=== PATIENT | male | born 1960 | race African-American/Black ===

== ENCOUNTER 2017-05-23 15:57 | Inpatient (IN) | payer OTHER ==
--- NOTE | 2017-05-23 16:26 | PDOC ---
History of Present Illness - General Chief Complaint: Shortness of Breath Stated Complaint: SOB Time Seen by Provider: 05/23/17 16:25 - History of Present Illness Initial Comments: 05/23/17 16:29 Pt to ER via EMS from home c/o sob/dizzy when standing x 3 hours. Pt denies pain , cough/congestion. Pt reports he was at [facility] ER 2 days ago for elevated blood sugar (467) but walked out when he didn't get any food. Per EMS, bgm=88. 05/23/17 16:48 56M with pmh of diabetes presents several days of intermittent lightheaded,mild ataxia,palpitations, and exertional dyspnea. He was seen at [facility] on Wednesday for lightheadedness and his glucose was 490 and he recieved 2 l of saline , cxr and left ama He has not been checking his glucose the last few months PMH IDDM lantus 60-70 at bedtime, metformin 1000mg, glipizide 10 mg BID,HTN norvasc 10mg and lipitor 10mg PSH none Allergies none Past History - Past Medical History Allergies/Adverse Reactions: Allergies Allergy/AdvReac Type Severity Reaction Status Date / Time No Known Allergies Allergy Verified 05/23/17 16:10 Home Medications: Ambulatory Orders Amlodipine Besylate [Norvasc -] 10 mg PO DAILY 05/23/17 Atorvastatin Ca [Lipitor] 10 mg PO DAILY 05/23/17 Glipizide [Glipizide ER] 10 mg PO BID 05/23/17 Insulin Glargine,Hum.rec.anlog [Lantus] 0 unit SQ HS 05/23/17 Metformin HCl [Metformin HCl ER] 1,000 mg PO BID 05/23/17 Review of Systems - Review of Systems Able to Perform ROS?: Yes Is the patient limited Irish proficient: No Constitutional: Yes: See HPI HEENTM: No: Symptoms Reported Respiratory: Yes: See HPI Cardiac (ROS): No: Symptoms Reported ABD/GI: No: Symptoms Reported : No: Symptoms Reported Musculoskeletal: No: Symptoms Reported Integumentary: No: Symptoms Reported All Other Systems: Reviewed and Negative *Physical Exam - Physical Exam General Appearance: Yes: Nourished, Appropriately Dressed. No: Apparent Distress HEENT: positive: EOMI, KENNY, Normal ENT Inspection Respiratory/Chest: positive: Lungs Clear, Normal Breath Sounds. negative: Chest Tender, Respiratory Distress Cardiovascular: positive: Regular Rhythm, S1, S2, Tachycardia Gastrointestinal/Abdominal: positive: Normal Bowel Sounds, Flat, Soft. negative : Tender Integumentary: positive: Normal Color, Dry, Warm Neurologic: positive: Fully Oriented, Alert, Normal Mood/Affect, Normal Response , Motor Strength / ED Treatment Course - LABORATORY CBC & Chemistry Diagram: 05/23/17 16:40 05/23/17 16:40 Medical Decision Making - Medical Decision Making 05/23/17 18:56 56 yo male p/w lightheadedness,dizziness, exertional dyspnea,palpitations cbc anemia ,pt has no history of anemia chemistry glucose is normal at 95,troponin is negative ekg sinus tachycardia @ 120 Positive stool guaiac. *DC/Admit/Observation/Transfer Diagnosis at time of Disposition: Lower GI bleed, Anemia - Referrals - Patient Instructions - Post Discharge Activity
--- NOTE | 2017-05-23 16:37 | PDOC ---
Attending Attestation - Resident Resident Name: Phan Shore - ED Attending Attestation I have performed the following: I have examined & evaluated the patient, The case was reviewed & discussed with the resident, I agree w/resident's findings & plan, Exceptions are as noted - HPI HPI: 05/23/17 16:33 56 y male p/w several days of intermittent lightheaded,mild ataxia,palpitations , and exertional dyspnea. He was seen at [facility] on Wednesday for lightheadedness and his glucose was 490 and he recieved 2 l of saline , cxr and discharged home. He has not been checking his glucose the last few months PMH IDDM lantus 60-70 at bedtime, metformin 1000mg, glipizide 10 mg BID,HTN norvasc 10mg and lipitor 10mg PSH none Allergies none - Physicial Exam PE: 05/23/17 16:38 head ncat eyes yogi neck supple lungs cta c/l cvs tachycardia abd soft,nontender rectal exam brown stool, normal tone ext no edema,no erythema neuro axox3,ambulatory skn warm and dry psych appropriate 05/23/17 18:22 - Medical Decision Making 05/23/17 18:30 56 yo male p/w lightheadedness,dizziness, exertional dyspnea,palpitations cbc anemia ,pt has no history of anemia chemistry glucose is normal at 95,troponin is negative ekg sinus tachycardia @ 120 GUIAC POSITIVE imp GI bleed,admit to med tele on 4W , discussed with Dr Juarez 05/23/17 19:21
[2017-05-23] MEDS ORDERED: SODIUM CHLORIDE 1,000 ML IV STA (16:40)
[2017-05-23 17:11] LABS: BASO % 0.3 % (0-2.0); EOS % 0.1 % (0-4.5); HEMATOCRIT 29.1 % (35.4-49); HEMOGLOBIN 9.8 GM/dL (11.7-16.9); MCH 30.5 pg (25.7-33.7); MCHC 33.6 g/dl (32.0-35.9); MEAN CELL VOLUME 90.8 fl (80-96); MEAN PLT VOLUME 9.1 fl (7.5-11.1); MONO % 7.2 % (3.8-10.2); NEUT % 74.4 % (42.8-82.8); PLATELET COUNT 187 K/MM3 (134-434); RBC 3.21 M/mm3 (4.00-5.60); RDW 14.6 % (11.9-15.9); WHITE BLOOD COUNT 9.6 K/mm3 (4.0-10.0)
[2017-05-23 17:23] LABS: INR 1.19 (0.82-1.09); PROTHROMBIN TIME (PATIENT) 13.5 SEC (9.98-11.88)
[2017-05-23 17:46] LABS: ALBUMIN 3.3 g/dl (3.4-5.0); ANION GAP 13 (8-16); BILIRUBIN,TOTAL 0.4 mg/dL (0.2-1.0); BLOOD UREA NITROGEN 26 mg/dL (7-18); CALCIUM 8.3 mg/dL (8.5-10.1); CHLORIDE 102 mmol/L (98-107); CO2 24 mmol/L (21-32); CREATININE 0.8 mg/dL (0.7-1.3); GLUCOSE,RANDOM 95 mg/dL (74-106); SGOT/AST 14 U/L (15-37); SGPT/ALT 20 U/L (12-78); SODIUM 139 mmol/L (136-145); TOT PROT 6.1 g/dl (6.4-8.2)
[2017-05-23 17:49] LABS: ALK PHOS 60 U/L (45-117)
[2017-05-23] MEDS ORDERED: PANTOPRAZOLE SODIUM 40 MG VIAL ONE (18:30)
[2017-05-23] MEDS ORDERED: PANTOPRAZOLE SODIUM 40 MG VIAL IVPUSH ONE (18:30)
--- NOTE | 2017-05-23 19:27 | PN ---
Teaching Attending Note Name of Resident: Ngozi Mercado ATTENDING PHYSICIAN STATEMENT I saw and evaluated the patient. I reviewed the resident's note and discussed the case with the resident. I agree with the resident's findings and plan as documented. SUBJECTIVE: 56 M who was BIBA for shortness and dizziness. States he was seen at [facility] on Wednesday for high blood sugar. States this started one day ago. States shortness of breath is only apparent on exertion. States he has never had a colonoscopy/EGD. Does note sometimes stool is hard to pass. Does not note any ark or bloody stool. Denies hemoptysis and hemetemsis. Pmhx: DM, HTN OBJECTIVE: Physical: VS: Vital Signs Period Temp Pulse Resp BP Sys/Rivera Pulse Ox Last 24 Hr 98.6 F 108-130 16-18 72-120/62-81 99-100 GEN: NAD, Resting in bed, AA0X3 HEENT: NCAT, PERRL, Throat without erythema or exudates CARD: S Tach S1, S2 RESP: CTAB ABD: BSx4, NTD to palpation EXT: - C/C/E CBCD WBC 9.6 K/mm3 (4.0-10.0) 05/23/17 16:40 RBC 3.21 M/mm3 (4.00-5.60) L 05/23/17 16:40 Hgb 9.8 GM/dL (11.7-16.9) L 05/23/17 16:40 Hct 29.1 % (35.4-49) L 05/23/17 16:40 MCV 90.8 fl (80-96) 05/23/17 16:40 MCHC 33.6 g/dl (32.0-35.9) 05/23/17 16:40 RDW 14.6 % (11.9-15.9) 05/23/17 16:40 Plt Count 187 K/MM3 (134-434) 05/23/17 16:40 MPV 9.1 fl (7.5-11.1) 05/23/17 16:40 CMP Sodium 139 mmol/L (136-145) 05/23/17 16:40 Potassium 4.0 mmol/L (3.5-5.1) 05/23/17 16:40 Chloride 102 mmol/L (98-107) 05/23/17 16:40 Carbon Dioxide 24 mmol/L (21-32) 05/23/17 16:40 Anion Gap 13 (8-16) 05/23/17 16:40 BUN 26 mg/dL (7-18) H 05/23/17 16:40 Creatinine 0.8 mg/dL (0.7-1.3) 05/23/17 16:40 Creat Clearance w eGFR > 60 (>60) 05/23/17 16:40 Random Glucose 95 mg/dL (74-106) 05/23/17 16:40 Calcium 8.3 mg/dL (8.5-10.1) L 05/23/17 16:40 Total Bilirubin 0.4 mg/dL (0.2-1.0) 05/23/17 16:40 AST 14 U/L (15-37) L 05/23/17 16:40 ALT 20 U/L (12-78) 05/23/17 16:40 Alkaline Phosphatase 60 U/L (45-117) 05/23/17 16:40 Total Protein 6.1 g/dl (6.4-8.2) L 05/23/17 16:40 Albumin 3.3 g/dl (3.4-5.0) L 05/23/17 16:40 CARDIAC ENZYMES Creatine Kinase 296 IU/L (39-308) 05/23/17 16:40 Troponin I < 0.02 ng/ml (0.00-0.05) 05/23/17 16:40 Home Medications Medication Instructions Recorded Amlodipine Besylate [Norvasc -] 10 mg PO DAILY 05/23/17 Atorvastatin Ca [Lipitor] 10 mg PO DAILY 05/23/17 Glipizide [Glipizide ER] 10 mg PO BID 05/23/17 Insulin Glargine,Hum.rec.anlog 0 unit SQ HS 05/23/17 [Lantus] Metformin HCl [Metformin HCl ER] 1,000 mg PO BID 05/23/17 CT HEAD- Negative EKG- S Tach CXR- Negative Stool Occult-Positive ASSESSMENT AND PLAN: 56 M with Pmhx of DM who presents with shortness of breath, being admitted for GI Bleed 1.) UGIB? - Most likely cause of exertional dyspnea - Protoxix gtt - 2 Large Bore Ivs - NPO - GI Consult - Type & Screen - Tranfuse HgB<7 2.) Dyspnea On Exertion - Possibly due to Anemia - Check Echo - Tren Trop/EKG 3.) DM - FS - RAISS - Hold PO meds 4.) HTN - Hold Norvasc 5.) Dvt PPx - SCDs Place in Med-Tele
--- NOTE | 2017-05-23 19:40 | PDOC ---
*Physical Exam - Vital Signs Last Vital Signs Temp Pulse Resp BP Pulse Ox 98.6 F 108 H 16 114/81 100 05/23/17 16:13 05/23/17 17:18 05/23/17 17:18 05/23/17 17:18 05/23/17 17:18 ED Treatment Course - LABORATORY CBC & Chemistry Diagram: 05/23/17 16:40 05/23/17 16:40 - ADDITIONAL ORDERS Additional order review: Laboratory Results 05/23/17 05/23/17 05/23/17 18:13 16:40 16:40 PT with INR INR Sodium 139 Potassium 4.0 Chloride 102 Carbon Dioxide 24 Anion Gap 13 BUN 26 H Creatinine 0.8 Creat Clearance w eGFR > 60 Random Glucose 95 Calcium 8.3 L Total Bilirubin 0.4 AST 14 L ALT 20 Alkaline Phosphatase 60 Creatine Kinase 296 Creatine Kinase Index 1.4 CK-MB (CK-2) 4.295 H Troponin I < 0.02 Total Protein 6.1 L Albumin 3.3 L Stool Occult Blood Positive Blood Type O POSITIVE Antibody Screen Negative Crossmatch See Detail 05/23/17 16:40 PT with INR 13.50 H INR 1.19 H Sodium Potassium Chloride Carbon Dioxide Anion Gap BUN Creatinine Creat Clearance w eGFR Random Glucose Calcium Total Bilirubin AST ALT Alkaline Phosphatase Creatine Kinase Creatine Kinase Index CK-MB (CK-2) Troponin I Total Protein Albumin Stool Occult Blood Blood Type Antibody Screen Crossmatch 05/23/17 16:40 RBC 3.21 L MCV 90.8 MCHC 33.6 RDW 14.6 MPV 9.1 Neutrophils % 74.4 Lymphocytes % 18.0 Monocytes % 7.2 Eosinophils % 0.1 Basophils % 0.3 - RADIOLOGY Radiology Studies Ordered: Category Date Time Status HEAD CT WITHOUT CONTRAST [CT] Stat CT Scan 05/23/17 16:39 Taken CHEST X-RAY PORTABLE* [RAD] Stat Radiology 05/23/17 16:39 Taken - Medications Given in the ED: ED Medications Discontinued Medications Generic Name Dose Route Start Last Admin Trade Name Freq PRN Reason Stop Dose Admin Sodium Chloride 1,000 mls @ 1,000 mls/hr 05/23/17 16:40 05/23/17 17:00 Normal Saline - IV 05/23/17 17:39 1,000 mls/hr ASDIR STA Administration Pantoprazole Sodium 40 mg 05/23/17 18:30 05/23/17 18:33 Protonix Iv IVPUSH 05/23/17 18:31 40 mg ONCE ONE Administration *DC/Admit/Observation/Transfer Diagnosis at time of Disposition: Lower GI bleed, Exertional dyspnea, Dizziness Anemia Qualifiers: Anemia type: other cause Other causes of anemia: other cause, not classified Qualified Code(s): D64.89 - Other specified anemias - Discharge Dispostion Admit: Yes - Referrals - Patient Instructions - Post Discharge Activity
--- NOTE | 2017-05-23 20:50 | HP ---
CHIEF COMPLAINT: SOB, dizziness PCP: HISTORY OF PRESENT ILLNESS: The patient is a 56 yo m w/ PMH DM, HTN who comes into the ED c/o 1 day hx of dyspnea on exertion, dizziness and generalized weakness for the past 1 day. Patient was recently seen at [facility] ER 2 days ago for high blood sugar (497). He received treatment and imaging, then left AMA. Patient unaware of the results of his ER visit tests. Patient currently asymptomatic while lying in bed, but experiences recurrence of symptoms upon getting out of bed and walking. Patient endorses constipation as well as recent change in stool caliber (over the last 2 months) and occational "scratching feeling" when passing hard stool. Patient denies CP, abdominal pain, fevers, chills, LOC, falls, palpitations, hemoptysis, hematemesis, melena, BRBPR. ER course was notable for: (1) Hb 9.8 (2) fecal occult blood test positive (3) troponin negative x1 Recent Travel: none PAST MEDICAL HISTORY: Diabetes HTN PAST SURGICAL HISTORY: none Social History: Smoking: smoked 1ppd for 15 years; quit in 2005 Alcohol: social drinker Drugs: denies Family History: Mother: throat cancer Father: multiple CA Allergies No Known Allergies Allergy (Verified 05/23/17 16:10) HOME MEDICATIONS: Home Medications Medication Instructions Recorded Amlodipine Besylate [Norvasc -] 10 mg PO DAILY 05/23/17 Atorvastatin Ca [Lipitor] 10 mg PO DAILY 05/23/17 Glipizide [Glipizide ER] 10 mg PO BID 05/23/17 Insulin Glargine,Hum.rec.anlog 0 unit SQ HS 05/23/17 [Lantus] Metformin HCl [Metformin HCl ER] 1,000 mg PO BID 05/23/17 REVIEW OF SYSTEMS CONSTITUTIONAL: Absent: fever, chills, diaphoresis, malaise, loss of appetite, weight change HEENT: Absent: rhinorrhea, nasal congestion, throat pain, throat swelling, difficulty swallowing, mouth swelling, ear pain, eye pain, visual changes CARDIOVASCULAR: Absent: chest pain, syncope, palpitations, irregular heart rate, lightheadedness , peripheral edema RESPIRATORY: Absent: cough, orthopnea, wheezing, stridor, hemoptysis GASTROINTESTINAL: Absent: abdominal pain, abdominal distension, nausea, vomiting, diarrhea, constipation, melena, hematochezia GENITOURINARY: Absent: dysuria, frequency, urgency, hesitancy, hematuria, flank pain, genital pain MUSCULOSKELETAL: Absent: myalgia, arthralgia, joint swelling, back pain, neck pain SKIN: Absent: rash, itching, pallor HEMATOLOGIC/IMMUNOLOGIC: Absent: easy bleeding, easy bruising, lymphadenopathy, frequent infections ENDOCRINE: Absent: unexplained weight gain, unexplained weight loss, heat intolerance, cold intolerance NEUROLOGIC: Absent: headache, focal weakness or paresthesias, dizziness, unsteady gait, seizure, mental status changes, bladder or bowel incontinence PSYCHIATRIC: Absent: anxiety, depression, suicidal or homicidal ideation, hallucinations. PHYSICAL EXAMINATION Vital Signs - 24 hr 05/23/17 05/23/17 05/23/17 16:13 16:39 17:18 Temperature 98.6 F Pulse Rate 120 H Pulse Rate [ 108 H Apical] Pulse Rate [ 123 H Left side Sitting] Pulse Rate [ 130 H Left side Standing] Respiratory 18 16 Rate Blood Pressure 118/75 Blood Pressure 120/72 [Left side Sitting] Blood Pressure 72/62 [Left side Standing] Blood Pressure 114/81 [Right Arm] O2 Sat by Pulse 99 100 Oximetry (%) GENERAL: Awake, alert, and fully oriented, in no acute distress. HEAD: Normal with no signs of trauma. EYES: Pupils equal, round and reactive to light, extraocular movements intact, sclera anicteric, conjunctival pallor noted. No lid lag. LUNGS: Breath sounds equal, clear to auscultation bilaterally. No wheezes, and no crackles. No accessory muscle use. HEART: Regular rhythm, Tachycardic, normal S1 and S2 without murmur, rub or gallop. ABDOMEN: Soft, nontender, not distended, normoactive bowel sounds, no guarding, no rebound, no masses. No hepatomegaly or splenomegaly. Patient deferred rectal exam. LOWER EXTREMITIES: 2+ pulses, warm, well-perfused. No calf tenderness. No peripheral edema. NEUROLOGICAL: Cranial nerves II-X intact. Normal speech. SKIN: Warm, dry, normal turgor, no rashes or lesions noted, normal capillary refill. Laboratory Results - last 24 hr 05/23/17 05/23/17 05/23/17 16:40 16:40 16:40 WBC 9.6 RBC 3.21 L Hgb 9.8 L Hct 29.1 L MCV 90.8 MCH 30.5 MCHC 33.6 RDW 14.6 Plt Count 187 MPV 9.1 Neutrophils % 74.4 Lymphocytes % 18.0 Monocytes % 7.2 Eosinophils % 0.1 Basophils % 0.3 PT with INR 13.50 H INR 1.19 H Sodium 139 Potassium 4.0 Chloride 102 Carbon Dioxide 24 Anion Gap 13 BUN 26 H Creatinine 0.8 Creat Clearance w eGFR > 60 Random Glucose 95 Calcium 8.3 L Total Bilirubin 0.4 AST 14 L ALT 20 Alkaline Phosphatase 60 Creatine Kinase 296 Creatine Kinase Index 1.4 CK-MB (CK-2) 4.295 H Troponin I < 0.02 Total Protein 6.1 L Albumin 3.3 L Stool Occult Blood Blood Type Antibody Screen Crossmatch 05/23/17 05/23/17 16:40 18:13 WBC RBC Hgb Hct MCV MCH MCHC RDW Plt Count MPV Neutrophils % Lymphocytes % Monocytes % Eosinophils % Basophils % PT with INR INR Sodium Potassium Chloride Carbon Dioxide Anion Gap BUN Creatinine Creat Clearance w eGFR Random Glucose Calcium Total Bilirubin AST ALT Alkaline Phosphatase Creatine Kinase Creatine Kinase Index CK-MB (CK-2) Troponin I Total Protein Albumin Stool Occult Blood Positive Blood Type O POSITIVE Antibody Screen Negative Crossmatch See Detail ASSESSMENT/PLAN: The patient is a 56 yo m w/ PMH DM, HTN being admitted for SOB, Anemia and possible GIB. #SOB and generalized weakness 2/2 Cardiac vs r/o UGIB -FOBT positive -GI consulted -Patient appears stable and not actively bleeding at this time -20g IV x2 inserted -CBC Q8H; transfuse if Hb falls below 7 -RPT CBC shows drop of Hb 9.8-> 7.9. -Likely dilutional vs continued bleeding -Will transfuse 1U PRBC & recheck CBC in AM -Iron studies -Vit B12 -Folate -NPO -Protonix 40mg Q12H -Echo, EKG in AM -Troponin negative x2 -Patient deferred rectal exam #Diabetes -Recent high BGM; 95 in ED, 88 as per EMS -BGM Q4H while NPO -D5 1/2 NS while NPO -ISS Q4H -Holding oral hypoglycemics #HTN -Hold home norvasc -resume home lipitor #FEN -D5 1/2 NS @ 75- Held -lytes wnl -NPO #Prophylaxis -SCDs until bleed ruled out #Dispo -Admit to tele Visit type - Emergency Visit Emergency Visit: Yes ED Registration Date: 05/23/17 Care time: The patient presented to the Emergency Department on the above date and was hospitalized for further evaluation of their emergent condition. - New Patient This patient is new to me today: Yes Date on this admission: 05/24/17 - Critical Care Critical Care patient: No Hospitalist Screening - Colonoscopy Questionnaire Colonoscopy Questionnaire: Colonoscopy Questionnaire - Patient: 50 - 75 years old and never had a screening colonoscopy: Yes History of colon or rectal polyps, or CA: No History of IBD, Crohn's disease or UC: No History of abdominal radiation therapy as a child: No - Relative: 1 with colon or rectal CA, or polyps at age 60 or younger: No Colon or rectal CA diagnosed at age 45 or younger: No Multiple relatives with colon or rectal CA: No - Outcome: Screening Result: Positive Screen
[2017-05-23] MEDS ORDERED: DEXTROSE 5%-0.45% SALINE 1,000 ML IV SCH (21:45)
[2017-05-23] MEDS: INSULIN SLIDING SCALE (NOVOLOG) 1 VIAL SQ SCH (22:18)
[2017-05-23] MEDS: PANTOPRAZOLE SODIUM 40 MG VIAL IVPUSH SCH (22:19)
[2017-05-23] MEDS: ACETAMINOPHEN 325 MG TABLET (FP) PO PRN (22:19)
[2017-05-23] MEDS: ATORVASTATIN CA 10 MG TABLET (FP) PO SCH (23:00)
[2017-05-23 23:23] VITALS: BMI 25.0
[2017-05-24 01:04] LABS: BASO % 0.2 % (0-2.0); EOS % 0.4 % (0-4.5); HEMATOCRIT 23.6 % (35.4-49); HEMOGLOBIN 7.9 GM/dL (11.7-16.9); LYMPH % 21.9 % (8-40); MCH 30.3 pg (25.7-33.7); MCHC 33.2 g/dl (32.0-35.9); MEAN CELL VOLUME 91.2 fl (80-96); MEAN PLT VOLUME 9.4 fl (7.5-11.1); NEUT % 69.5 % (42.8-82.8); PLATELET COUNT 159 K/MM3 (134-434); RBC 2.59 M/mm3 (4.00-5.60); RDW 14.5 % (11.9-15.9)
[2017-05-24 01:07] LABS: URINE APPEARANCE CLEAR; URINE BILIRUBIN NEGATIVE (NEGATIVE); URINE BLOOD NEGATIVE (NEGATIVE); URINE COLOR LTYELLOW; URINE GLUCOSE (UA) NEGATIVE (NEGATIVE); URINE KETONE TRACE (NEGATIVE); URINE LEUK ESTERASE NEGATIVE (NEGATIVE); URINE NITRITE NEGATIVE (NEGATIVE); URINE PROTEIN NEGATIVE (NEGATIVE); URINE UROBILINOGEN 4.0 E.U/dl mg/dL (0.2-1.0)
[2017-05-24] MEDS: INSULIN SLIDING SCALE (NOVOLOG) 1 VIAL SQ SCH ×5 (02:37→22:41)
[2017-05-24] MEDS: ACETAMINOPHEN 325 MG TABLET (FP) PO PRN ×3 (04:00→19:04)
--- NOTE | 2017-05-24 08:19 | MSN ---
Progress Note (short form) - Note Progress Note: Subjective: Patient was seen and examined this morning. States that he is feeling better, does not feel light headed when he gets up anymore. Patient seen by GI, told will have colonoscopy today. Patient complains of left sided tooth ache. On tele , patient is tachycardic >120. 56yo M with hx of DM and HTN presented to the ED due to dizziness, fatigue/ lightheadedness, SOB which started yesterday. Patient states that he went to [facility] on Wed due to subjective fever and chills and had glucose of 400+, patient left AMA due to "poor service." On Wednesday, patient felt tired, lightheaded, heavy leg, SOB and eye whiteout whenever he tries to get up and resolved when he sits down, without loss of consciousness. Patient also noted that gradually there has been a change in caliber of stool, getting thinner and longer. Patient has never had a colonoscopy previously. Patient also complains of left sided swollen gum since yesterday. Patient's FM significant for throat cancer in mom, DM and MIx3- dad. Social hx: quit smoking in 2005. smoked for 10 years 1/2ppd-2ppd. Objective: Last Vital Signs Temp Pulse Resp BP Pulse Ox 98.6 F 87 18 122/73 100 05/24/17 06:27 05/24/17 06:27 05/24/17 06:27 05/24/17 06:27 05/23/17 22:30 Intake & Output 05/21/17 05/22/17 05/23/17 05/24/17 23:59 23:59 23:59 23:59 Intake Total 900 Output Total 600 Balance 300 Weight 184 lb 4 oz General: Patient appears comfortable and in no acute distress. Finished 1 PRBC infusion. HEENT: PERRL, swollen tender gum area of left canine. mucous membranes moist. no lymphadenopathy noted. Heart: RRR. no rubs, murmurs or gallops appreciated. Lungs: CTA b/l. no wheezing, crackles or rhonci appreciated. Abdomen: non-distended, normoactive bowel sounds x4, nontender to palpation throughout. Extremities: 2+ pulses b/l on UE and LE. No edema noted. CBC, BMP 05/24/17 00:30 05/23/17 16:40 Abnormal Lab Results 05/23/17 05/23/17 05/23/17 16:40 16:40 16:40 RBC 3.21 L Hgb 9.8 L Hct 29.1 L PT with INR 13.50 H INR 1.19 H BUN 26 H Calcium 8.3 L AST 14 L CK-MB (CK-2) 4.295 H Total Protein 6.1 L Albumin 3.3 L Urine Ketones Crossmatch 05/23/17 05/24/17 05/24/17 16:40 00:30 00:50 RBC 2.59 L Hgb 7.9 L D Hct 23.6 L D PT with INR INR BUN Calcium AST CK-MB (CK-2) Total Protein Albumin Urine Ketones Trace H Crossmatch See Detail Home Medications Medication Instructions Recorded Amlodipine Besylate [Norvasc -] 10 mg PO DAILY 05/23/17 Atorvastatin Ca [Lipitor] 10 mg PO DAILY 05/23/17 Glipizide [Glipizide ER] 10 mg PO BID 05/23/17 Insulin Glargine,Hum.rec.anlog 0 unit SQ HS 05/23/17 [Lantus] Metformin HCl [Metformin HCl ER] 1,000 mg PO BID 05/23/17 Current Medications Acetaminophen (Tylenol -) 650 mg PO Q6H PRN PRN Reason: PAIN LEVEL 1-5 Last Admin: 05/24/17 04:00 Dose: 650 mg Atorvastatin Calcium (Lipitor -) 10 mg PO HS [facility] Last Admin: 05/23/17 23:00 Dose: 10 mg Insulin Aspart (Novolog Vial Sliding Scale -) 1 vial SQ Q4HPO [facility] PRN Reason: Protocol Last Admin: 05/24/17 06:55 Dose: Not Given Pantoprazole Sodium (Protonix Iv) 40 mg IVPUSH BID [facility] Last Admin: 05/23/17 22:19 Dose: 40 mg Assessment/ Plan: 56yo M with hx of DM and HTN presented to the ED due to dizziness, fatigue/ lightheadedness, SOB was found to be anemic and was transfused with 1 PRBC. # anemia secondary to upper or lower GI bleed - GI on board, EGD & colonoscopy Wednesday - protonix 40mg BID - tylenol 650 q6h prn pain - transfused 1 PRBC, HgB improved to 9.7 - B12, folate, ferritin wnl # DM - ISS, BGM # HTN - currently controlled. - home med lisinopril 20mg qd - on hold # FEN - F: bowel prep - E: wnl - N: clear liquid
[2017-05-24 09:25] LABS: BASO % 0.3 % (0-2.0); EOS % 0.3 % (0-4.5); HEMATOCRIT 30.9 % (35.4-49); HEMOGLOBIN 10.3 GM/dL (11.7-16.9); LYMPH % 13.8 % (8-40); MCH 30.2 pg (25.7-33.7); MCHC 33.3 g/dl (32.0-35.9); MEAN CELL VOLUME 90.7 fl (80-96); MEAN PLT VOLUME 8.5 fl (7.5-11.1); MONO % 8.1 % (3.8-10.2); NEUT % 77.5 % (42.8-82.8); PLATELET COUNT 161 K/MM3 (134-434); RDW 14.2 % (11.9-15.9); WHITE BLOOD COUNT 9.7 K/mm3 (4.0-10.0)
[2017-05-24 09:51] LABS: ALBUMIN 3.3 g/dl (3.4-5.0); ALK PHOS 70 U/L (45-117); ANION GAP 7 (8-16); BILIRUBIN,TOTAL 0.8 mg/dL (0.2-1.0); BLOOD UREA NITROGEN 15 mg/dL (7-18); CALCIUM 7.8 mg/dL (8.5-10.1); CHLORIDE 107 mmol/L (98-107); CO2 25 mmol/L (21-32); CREATININE 0.8 mg/dL (0.7-1.3); GLUCOSE,RANDOM 93 mg/dL (74-106); MAGNESIUM 1.9 mg/dL (1.8-2.4); POTASSIUM 3.9 mmol/L (3.5-5.1); SGOT/AST 12 U/L (15-37); SGPT/ALT 15 U/L (12-78); SODIUM 139 mmol/L (136-145); TOT PROT 5.8 g/dl (6.4-8.2)
[2017-05-24] MEDS: PANTOPRAZOLE SODIUM 40 MG VIAL IVPUSH SCH ×2 (09:54→22:41)
[2017-05-24] MEDS ORDERED: amLODIPine BESYLATE 10 MG TABLET (FP) PO SCH (10:00)
--- NOTE | 2017-05-24 11:38 | CON.GI ---
Consult Consult Specialty:: GI Reason for Consultation:: Anemia, heme positive stools, change in stool caliper - History of Present Illness History of Present Illness: chart reviewed. Martin noted. PER ED: The patient is a 56 yo m w/ PMH DM, HTN who comes into the ED c/o 1 day hx of dyspnea on exertion, dizziness and generalized weakness for the past 1 day. Patient was recently seen at [facility] ER 2 days ago for high blood sugar (497). He received treatment and imaging, then left AMA. Patient unaware of the results of his ER visit tests. Patient currently asymptomatic while lying in bed, but experiences recurrence of symptoms upon getting out of bed and walking. Patient endorses constipation as well as recent change in stool caliber (over the last 2 months) and occational "scratching feeling" when passing hard stool. At the time of this encounter, the patient appears comfortable. Reports thinner stools. Denies fever, chills, nausea, vomiting, hematemesis, dysphagia, odynophagia, chronic acid reflux, jaundice, abdominal pain, altered bowels, Denies melena, hematochezia, weight loss. No gastrointestinal, hepatic, or pancreaticobiliary family history reported. Never had screening colonoscopy. Never had EGD - History Source History Provided By: Patient, Medical Record - Alcohol/Substance Use Hx Alcohol Use: Yes (casually.) - Smoking History Smoking history: Former smoker Have you smoked in the past 12 months: No If you are a former smoker, when did you quit?: 2005 Home Medications - Allergies Allergies/Adverse Reactions: Allergies Allergy/AdvReac Type Severity Reaction Status Date / Time No Known Allergies Allergy Verified 05/23/17 16:10 - Home Medications Home Medications: Ambulatory Orders Amlodipine Besylate [Norvasc -] 10 mg PO DAILY 05/23/17 Atorvastatin Ca [Lipitor] 10 mg PO DAILY 05/23/17 Glipizide [Glipizide ER] 10 mg PO BID 05/23/17 Insulin Glargine,Hum.rec.anlog [Lantus] 0 unit SQ HS 05/23/17 Metformin HCl [Metformin HCl ER] 1,000 mg PO BID 05/23/17 Family Disease History - Family Disease History Family History: Unremarkable Review of Systems Findings/Remarks: as per HPI H&P Physical Exam-GI Vital Signs: Vital Signs Temperature 98.6 F 05/24/17 06:27 Pulse Rate 103 H 05/24/17 08:26 Respiratory Rate 18 05/24/17 06:27 Blood Pressure 135/81 05/24/17 08:26 O2 Sat by Pulse Oximetry (%) 100 05/23/17 22:30 Constitutional: Yes: Well Nourished, No Distress, Calm Eyes: Yes: Conjunctiva Clear HENT: Yes: Atraumatic Neck: Yes: Supple Cardiovascular: Yes: Regular Rate and Rhythm Respiratory: Yes: Regular Gastrointestinal Inspection: No: Ascites, Distention ...Auscultate: Yes: Normoactive Bowel Sounds ...Palpate: No: Firm/Rigid, Guarding, Mass, Tenderness, Tenderness, Epigastium Neurological: Yes: Alert, Oriented Labs: CBC, BMP 05/24/17 09:16 05/24/17 09:16 INR, PTT INR 1.19 (0.82-1.09) H 05/23/17 16:40 Laboratory Tests 05/23/17 05/23/17 05/23/17 16:40 16:40 16:40 WBC 9.6 RBC 3.21 L Hgb 9.8 L Hct 29.1 L MCV 90.8 MCH 30.5 MCHC 33.6 RDW 14.6 Plt Count 187 MPV 9.1 Neutrophils % 74.4 Lymphocytes % 18.0 Monocytes % 7.2 Eosinophils % 0.1 Basophils % 0.3 PT with INR 13.50 H INR 1.19 H Sodium 139 Potassium 4.0 Chloride 102 Carbon Dioxide 24 Anion Gap 13 BUN 26 H Creatinine 0.8 Creat Clearance w eGFR > 60 POC Glucometer Random Glucose 95 Calcium 8.3 L Phosphorus Magnesium Ferritin Total Bilirubin 0.4 AST 14 L ALT 20 Alkaline Phosphatase 60 Creatine Kinase 296 Creatine Kinase Index 1.4 CK-MB (CK-2) 4.295 H Troponin I < 0.02 B-Natriuretic Peptide Cancelled Total Protein 6.1 L Albumin 3.3 L Vitamin B12 Serum Folate Urine Color Urine Appearance Urine pH Ur Specific [place] Urine Protein Urine Glucose (UA) Urine Ketones Urine Blood Urine Nitrite Urine Bilirubin Urine Urobilinogen Ur Leukocyte Esterase Stool Occult Blood Blood Type Antibody Screen Crossmatch 05/23/17 05/23/17 05/23/17 16:40 18:13 21:50 WBC RBC Hgb Hct MCV MCH MCHC RDW Plt Count MPV Neutrophils % Lymphocytes % Monocytes % Eosinophils % Basophils % PT with INR INR Sodium Potassium Chloride Carbon Dioxide Anion Gap BUN Creatinine Creat Clearance w eGFR POC Glucometer Random Glucose Calcium Phosphorus Magnesium Ferritin Total Bilirubin AST ALT Alkaline Phosphatase Creatine Kinase Creatine Kinase Index CK-MB (CK-2) Troponin I B-Natriuretic Peptide 9.73 Total Protein Albumin Vitamin B12 Serum Folate Urine Color Urine Appearance Urine pH Ur Specific [place] Urine Protein Urine Glucose (UA) Urine Ketones Urine Blood Urine Nitrite Urine Bilirubin Urine Urobilinogen Ur Leukocyte Esterase Stool Occult Blood Positive Blood Type O POSITIVE Antibody Screen Negative Crossmatch See Detail 05/23/17 05/24/17 05/24/17 22:17 00:30 00:30 WBC 8.0 RBC 2.59 L Hgb 7.9 L D Hct 23.6 L D MCV 91.2 MCH 30.3 MCHC 33.2 RDW 14.5 Plt Count 159 MPV 9.4 Neutrophils % 69.5 Lymphocytes % 21.9 D Monocytes % 8.0 Eosinophils % 0.4 D Basophils % 0.2 PT with INR INR Sodium Potassium Chloride Carbon Dioxide Anion Gap BUN Creatinine Creat Clearance w eGFR POC Glucometer 115 Random Glucose Calcium Phosphorus Magnesium Ferritin Total Bilirubin AST ALT Alkaline Phosphatase Creatine Kinase Creatine Kinase Index CK-MB (CK-2) Troponin I B-Natriuretic Peptide Total Protein Albumin Vitamin B12 289 Serum Folate Urine Color Urine Appearance Urine pH Ur Specific [place] Urine Protein Urine Glucose (UA) Urine Ketones Urine Blood Urine Nitrite Urine Bilirubin Urine Urobilinogen Ur Leukocyte Esterase Stool Occult Blood Blood Type Antibody Screen Crossmatch 05/24/17 05/24/17 05/24/17 00:30 00:50 00:50 WBC RBC Hgb Hct MCV MCH MCHC RDW Plt Count MPV Neutrophils % Lymphocytes % Monocytes % Eosinophils % Basophils % PT with INR INR Sodium Potassium Chloride Carbon Dioxide Anion Gap BUN Creatinine Creat Clearance w eGFR POC Glucometer Random Glucose Calcium Phosphorus Magnesium Ferritin 155.720 Total Bilirubin AST ALT Alkaline Phosphatase Creatine Kinase Creatine Kinase Index CK-MB (CK-2) Troponin I 0.02 B-Natriuretic Peptide Total Protein Albumin Vitamin B12 Serum Folate 15 Urine Color Ltyellow Urine Appearance Clear Urine pH 6.0 Ur Specific [place] 1.017 Urine Protein Negative Urine Glucose (UA) Negative Urine Ketones Trace H Urine Blood Negative Urine Nitrite Negative Urine Bilirubin Negative Urine Urobilinogen 4.0 e.u/dl Ur Leukocyte Esterase Negative Stool Occult Blood Blood Type Antibody Screen Crossmatch 05/24/17 05/24/17 05/24/17 02:29 02:30 06:55 WBC RBC Hgb Hct MCV MCH MCHC RDW Plt Count MPV Neutrophils % Lymphocytes % Monocytes % Eosinophils % Basophils % PT with INR INR Sodium Potassium Chloride Carbon Dioxide Anion Gap BUN Creatinine Creat Clearance w eGFR POC Glucometer 159 115 Random Glucose Calcium Phosphorus Magnesium Ferritin Total Bilirubin AST ALT Alkaline Phosphatase Creatine Kinase Creatine Kinase Index CK-MB (CK-2) Troponin I B-Natriuretic Peptide Total Protein Albumin Vitamin B12 Serum Folate Urine Color Urine Appearance Urine pH Ur Specific [place] Urine Protein Urine Glucose (UA) Urine Ketones Urine Blood Urine Nitrite Urine Bilirubin Urine Urobilinogen Ur Leukocyte Esterase Stool Occult Blood Blood Type O POSITIVE Antibody Screen Negative Crossmatch 05/24/17 05/24/17 05/24/17 09:16 09:16 11:09 WBC 9.7 RBC 3.40 L D Hgb 10.3 L D Hct 30.9 L D MCV 90.7 MCH 30.2 MCHC 33.3 RDW 14.2 Plt Count 161 MPV 8.5 Neutrophils % 77.5 Lymphocytes % 13.8 D Monocytes % 8.1 Eosinophils % 0.3 Basophils % 0.3 PT with INR INR Sodium 139 Potassium 3.9 Chloride 107 Carbon Dioxide 25 Anion Gap 7 L BUN 15 D Creatinine 0.8 Creat Clearance w eGFR > 60 POC Glucometer 91 Random Glucose 93 Calcium 7.8 L Phosphorus 3.0 Magnesium 1.9 Ferritin Total Bilirubin 0.8 D AST 12 L ALT 15 D Alkaline Phosphatase 70 Creatine Kinase Creatine Kinase Index CK-MB (CK-2) Troponin I B-Natriuretic Peptide Total Protein 5.8 L Albumin 3.3 L Vitamin B12 Serum Folate Urine Color Urine Appearance Urine pH Ur Specific [place] Urine Protein Urine Glucose (UA) Urine Ketones Urine Blood Urine Nitrite Urine Bilirubin Urine Urobilinogen Ur Leukocyte Esterase Stool Occult Blood Blood Type Antibody Screen Crossmatch Imaging - Results X-ray: Report Reviewed Cat Scan: Report Reviewed (head) EKG: Report Reviewed Problem List - Problems (1) Blood in stool Code(s): K92.1 - MELENA (2) Anemia Code(s): D64.9 - ANEMIA, UNSPECIFIED Assessment/Plan A 56 yom with uncontrolled DM, normocytic, normochromic anema and occult GI bleeding. Never had screening colonsocopy. Never had the symptoms in the past to warrant EGD. As discussed with the patient today, plan EGD and colonoscopy to r/o malignancy , other etiologies of gastrointestinal tract bleeding. Risks, benefits, alternatives to these procedures were discussed. The patient expressed understanding and is in agreement with the plan.
--- NOTE | 2017-05-24 14:09 | PN ---
Physical Exam: SUBJECTIVE: Patient seen and examined No acute events overnight. Pt reports improving SOB, weakness, and lightheadedness. He is complaining of left upper molar pain. He denies hematemesis, melena, and hematochezia. OBJECTIVE: Vital Signs Period Temp Pulse Resp BP Sys/Rivera Pulse Ox Last 24 Hr 98.4 F-98.8 F 87-130 16-18 72-142/62-85 99-100 GENERAL: The patient is awake, alert, and fully oriented, in no acute distress. HEENT: NC, AT LUNGS: Breath sounds equal, clear to auscultation bilaterally, no wheezes, no crackles, no accessory muscle use. HEART: Regular rate and rhythm, S1, S2 without murmur, rub or gallop. ABDOMEN: Soft, nontender, nondistended, normoactive bowel sounds, no guarding, no rebound, no hepatosplenomegaly, no masses. EXTREMITIES: 2+ pulses, warm, well-perfused, no edema. NEUROLOGICAL: Cranial nerves II through XII grossly intact. Normal speech, gait not observed. Laboratory Results - last 24 hr 05/23/17 05/23/17 05/23/17 16:40 16:40 16:40 WBC 9.6 RBC 3.21 L Hgb 9.8 L Hct 29.1 L MCV 90.8 MCH 30.5 MCHC 33.6 RDW 14.6 Plt Count 187 MPV 9.1 Neutrophils % 74.4 Lymphocytes % 18.0 Monocytes % 7.2 Eosinophils % 0.1 Basophils % 0.3 PT with INR 13.50 H INR 1.19 H Sodium 139 Potassium 4.0 Chloride 102 Carbon Dioxide 24 Anion Gap 13 BUN 26 H Creatinine 0.8 Creat Clearance w eGFR > 60 POC Glucometer Random Glucose 95 Calcium 8.3 L Phosphorus Magnesium Ferritin Total Bilirubin 0.4 AST 14 L ALT 20 Alkaline Phosphatase 60 Creatine Kinase 296 Creatine Kinase Index 1.4 CK-MB (CK-2) 4.295 H Troponin I < 0.02 B-Natriuretic Peptide Cancelled Total Protein 6.1 L Albumin 3.3 L Vitamin B12 Serum Folate Urine Color Urine Appearance Urine pH Ur Specific [place] Urine Protein Urine Glucose (UA) Urine Ketones Urine Blood Urine Nitrite Urine Bilirubin Urine Urobilinogen Ur Leukocyte Esterase Stool Occult Blood Blood Type Antibody Screen Crossmatch 05/23/17 05/23/17 05/23/17 16:40 18:13 21:50 WBC RBC Hgb Hct MCV MCH MCHC RDW Plt Count MPV Neutrophils % Lymphocytes % Monocytes % Eosinophils % Basophils % PT with INR INR Sodium Potassium Chloride Carbon Dioxide Anion Gap BUN Creatinine Creat Clearance w eGFR POC Glucometer Random Glucose Calcium Phosphorus Magnesium Ferritin Total Bilirubin AST ALT Alkaline Phosphatase Creatine Kinase Creatine Kinase Index CK-MB (CK-2) Troponin I B-Natriuretic Peptide 9.73 Total Protein Albumin Vitamin B12 Serum Folate Urine Color Urine Appearance Urine pH Ur Specific [place] Urine Protein Urine Glucose (UA) Urine Ketones Urine Blood Urine Nitrite Urine Bilirubin Urine Urobilinogen Ur Leukocyte Esterase Stool Occult Blood Positive Blood Type O POSITIVE Antibody Screen Negative Crossmatch See Detail 05/23/17 05/24/17 05/24/17 22:17 00:30 00:30 WBC 8.0 RBC 2.59 L Hgb 7.9 L D Hct 23.6 L D MCV 91.2 MCH 30.3 MCHC 33.2 RDW 14.5 Plt Count 159 MPV 9.4 Neutrophils % 69.5 Lymphocytes % 21.9 D Monocytes % 8.0 Eosinophils % 0.4 D Basophils % 0.2 PT with INR INR Sodium Potassium Chloride Carbon Dioxide Anion Gap BUN Creatinine Creat Clearance w eGFR POC Glucometer 115 Random Glucose Calcium Phosphorus Magnesium Ferritin Total Bilirubin AST ALT Alkaline Phosphatase Creatine Kinase Creatine Kinase Index CK-MB (CK-2) Troponin I B-Natriuretic Peptide Total Protein Albumin Vitamin B12 289 Serum Folate Urine Color Urine Appearance Urine pH Ur Specific [place] Urine Protein Urine Glucose (UA) Urine Ketones Urine Blood Urine Nitrite Urine Bilirubin Urine Urobilinogen Ur Leukocyte Esterase Stool Occult Blood Blood Type Antibody Screen Crossmatch 05/24/17 05/24/17 05/24/17 00:30 00:50 00:50 WBC RBC Hgb Hct MCV MCH MCHC RDW Plt Count MPV Neutrophils % Lymphocytes % Monocytes % Eosinophils % Basophils % PT with INR INR Sodium Potassium Chloride Carbon Dioxide Anion Gap BUN Creatinine Creat Clearance w eGFR POC Glucometer Random Glucose Calcium Phosphorus Magnesium Ferritin 155.720 Total Bilirubin AST ALT Alkaline Phosphatase Creatine Kinase Creatine Kinase Index CK-MB (CK-2) Troponin I 0.02 B-Natriuretic Peptide Total Protein Albumin Vitamin B12 Serum Folate 15 Urine Color Ltyellow Urine Appearance Clear Urine pH 6.0 Ur Specific [place] 1.017 Urine Protein Negative Urine Glucose (UA) Negative Urine Ketones Trace H Urine Blood Negative Urine Nitrite Negative Urine Bilirubin Negative Urine Urobilinogen 4.0 e.u/dl Ur Leukocyte Esterase Negative Stool Occult Blood Blood Type Antibody Screen Crossmatch 05/24/17 05/24/17 05/24/17 02:29 02:30 06:55 WBC RBC Hgb Hct MCV MCH MCHC RDW Plt Count MPV Neutrophils % Lymphocytes % Monocytes % Eosinophils % Basophils % PT with INR INR Sodium Potassium Chloride Carbon Dioxide Anion Gap BUN Creatinine Creat Clearance w eGFR POC Glucometer 159 115 Random Glucose Calcium Phosphorus Magnesium Ferritin Total Bilirubin AST ALT Alkaline Phosphatase Creatine Kinase Creatine Kinase Index CK-MB (CK-2) Troponin I B-Natriuretic Peptide Total Protein Albumin Vitamin B12 Serum Folate Urine Color Urine Appearance Urine pH Ur Specific [place] Urine Protein Urine Glucose (UA) Urine Ketones Urine Blood Urine Nitrite Urine Bilirubin Urine Urobilinogen Ur Leukocyte Esterase Stool Occult Blood Blood Type O POSITIVE Antibody Screen Negative Crossmatch 05/24/17 05/24/17 05/24/17 09:16 09:16 11:09 WBC 9.7 RBC 3.40 L D Hgb 10.3 L D Hct 30.9 L D MCV 90.7 MCH 30.2 MCHC 33.3 RDW 14.2 Plt Count 161 MPV 8.5 Neutrophils % 77.5 Lymphocytes % 13.8 D Monocytes % 8.1 Eosinophils % 0.3 Basophils % 0.3 PT with INR INR Sodium 139 Potassium 3.9 Chloride 107 Carbon Dioxide 25 Anion Gap 7 L BUN 15 D Creatinine 0.8 Creat Clearance w eGFR > 60 POC Glucometer 91 Random Glucose 93 Calcium 7.8 L Phosphorus 3.0 Magnesium 1.9 Ferritin Total Bilirubin 0.8 D AST 12 L ALT 15 D Alkaline Phosphatase 70 Creatine Kinase Creatine Kinase Index CK-MB (CK-2) Troponin I B-Natriuretic Peptide Total Protein 5.8 L Albumin 3.3 L Vitamin B12 Serum Folate Urine Color Urine Appearance Urine pH Ur Specific [place] Urine Protein Urine Glucose (UA) Urine Ketones Urine Blood Urine Nitrite Urine Bilirubin Urine Urobilinogen Ur Leukocyte Esterase Stool Occult Blood Blood Type Antibody Screen Crossmatch Active Medications Generic Name Dose Route Start Last Admin Trade Name Freq PRN Reason Stop Dose Admin Acetaminophen 650 mg 05/23/17 21:54 05/24/17 12:10 Tylenol - PO 650 mg Q6H PRN Administration PAIN LEVEL 1-5 Atorvastatin Calcium 10 mg 05/23/17 22:30 02/25/18 23:00 Lipitor - PO 10 mg HS ROX Administration Bisacodyl 20 mg 05/25/17 11:47 Dulcolax - PO 05/25/17 11:48 ONCE ONE Insulin Aspart 1 vial 05/23/17 22:00 05/24/17 11:12 Novolog Vial Sliding Scale - SQ Not Given Q4HPO ROX Protocol Pantoprazole Sodium 40 mg 05/23/17 22:15 05/24/17 09:54 Protonix Iv IVPUSH 40 mg BID ROX Administration Polyethylene Glycol/Electrolytes 4,000 ml 05/25/17 17:00 Golytely Solution - PO 05/25/17 17:01 ONCE ONE ASSESSMENT/PLAN: 56M with hx of DM and HTN who presents with shortness of breath, admitted for anemia workup. #normocytic anemia - Most likely cause of IVAN - Hgb of 7.9 today, down from 9.8 on admission - pt finishing 1 U of PRBCs - Protonix - NPO - GI on board, recs appreciated. pt to get EGD and colonoscopy - B12 and folate wnl - ferritin: wnl #IVAN -likely 2/2 anemia - Echo: mild MR, TR, and pulmonic valvular regurgitation -EKG: normal, trops negative #DM - BGM - ISS #HTN - Hold home norvasc #HLD -continue home lipitor #FEN/ppx -po fluids -electrolytes wnl -clear liquid diet -protonix -heparin held Case discussed with attending, Dr. Purvis. -Leoncio Mason MD PGY1 - SCDs Visit type - Emergency Visit Emergency Visit: Yes ED Registration Date: 05/23/17 Care time: The patient presented to the Emergency Department on the above date and was hospitalized for further evaluation of their emergent condition. - New Patient This patient is new to me today: Yes Date on this admission: 05/24/17 - Critical Care Critical Care patient: No
[2017-05-24] MEDS ORDERED: BENZOCAINE 20 % GEL 9 GM TUBE MM PRN (16:28)
--- NOTE | 2017-05-24 16:59 | PN ---
Teaching Attending Note Name of Resident: Leoncio Mason ATTENDING PHYSICIAN STATEMENT I saw and evaluated the patient. I reviewed the resident's note and discussed the case with the resident. I agree with the resident's findings and plan as documented. SUBJECTIVE:symptoms have resolved since receiving IVF in the ER. never had symptoms in the past. no blood transfusion in the past. denies colonoscopy. denies CP, SOB, fever, chills, N/V/C/D OBJECTIVE: Last Vital Signs Temp Pulse Resp BP Pulse Ox 98.4 F 94 H 18 137/82 100 05/24/17 10:00 05/24/17 10:00 05/24/17 10:00 05/24/17 10:05/24/17 09:00 General NAD CV S1 S2 RRR no murmur/rub/gallop Lungs CTA B/L no wheezing/rales/rhonchi Abdomen soft nT/ND ASSESSMENT AND PLAN: 56yo M with PMH DM, HTN with hx of non compliance presenting to the ER with dizzyness and weakness and found to have Hgb 7.9 1. Symptomatic anemia- s/p 1 unit PRBC with appropriate response and resolution of symptoms. FOBT +. GI consulted and plan for colonoscopy on 05/26. will start bowel prep tomorrow. iron studies pending (were drawn prior to txn) 2. DM- controlled. cont iss, bgm. hold oral agents 3. HTN- controlled. home medications are held. cont to hold 4. DVT ppx- EAM 5. does not require cardiac monitoring at this time
--- NOTE | 2017-05-24 17:00 | EKG ---
Test Reason : Blood Pressure : / mmHG Vent. Rate : 092 BPM Atrial Rate : 092 BPM P-R Int : 148 ms QRS Dur : 088 ms QT Int : 342 ms P-R-T Axes : 055 016 034 degrees QTc Int : 422 ms NORMAL SINUS RHYTHM NONSPECIFIC T WAVE ABNORMALITY ABNORMAL ECG WHEN COMPARED WITH ECG OF 23-MAY-2017 16:40, NONSPECIFIC T WAVE ABNORMALITY NOW EVIDENT IN INFERIOR LEADS Confirmed by BLANCA NAVA MD ([id number]) on 05/24/2017 5:00:02 PM Referred By: Confirmed By:BLANCA NAVA MD
--- NOTE | 2017-05-24 17:05 | EKG ---
Test Reason : Blood Pressure : / mmHG Vent. Rate : 120 BPM Atrial Rate : 120 BPM P-R Int : 136 ms QRS Dur : 082 ms QT Int : 322 ms P-R-T Axes : 056 036 060 degrees QTc Int : 455 ms SINUS TACHYCARDIA NONSPECIFIC T WAVE ABNORMALITY ABNORMAL ECG NO PREVIOUS ECGS AVAILABLE Confirmed by BLANCA NAVA MD ([id number]) on 05/24/2017 5:05:09 PM Referred By: Confirmed By:BLANCA NAVA MD
[2017-05-24] MEDS: ATORVASTATIN CA 10 MG TABLET (FP) PO SCH (22:42)
[2017-05-25] MEDS: INSULIN SLIDING SCALE (NOVOLOG) 1 VIAL SQ SCH ×4 (06:46→21:50)
--- NOTE | 2017-05-25 06:53 | MSN ---
Progress Note (short form) - Note Progress Note: Subjective: Patient was seen and examined this morning and has no complaints. Patient states he is not light headed, has been able to ambulate and shower without dizziness or any weakness. States his gums has not been bothering him. Denies SOB, chest pain, abd pain, N/V/D. Objective: Last Vital Signs Temp Pulse Resp BP Pulse Ox 98.8 F 87 18 123/70 100 05/25/17 06:00 05/25/17 06:00 05/25/17 06:00 05/25/17 06:00 05/24/17 21:00 Intake & Output 05/22/17 05/23/17 05/24/17 05/25/17 23:59 23:59 23:59 23:59 Intake Total 1300 Output Total 600 Balance 700 Weight 184 lb 4 oz General: Patient appears well, awake, in no acute distress. HEENT: normocephalic, atraumatic. PERRL, mucous membrane moist. trachea midline Heart: RRR. S1, occasional split S2 on inspiration. No rubs, murmurs or gallops appreciated. Lungs: CTA B/L. No wheezing, crackles or rhonci appreciated. Abdomen: soft, non-tender, normoactive bowel sounds x4. Extremities: well perfused, 2+ pulses B/L. CBC, BMP 05/25/17 05:35 05/25/17 05:35 Abnormal Lab Results 05/24/17 05/24/17 05/25/17 09:16 09:16 05:35 RBC 3.40 L D 3.14 L Hgb 10.3 L D 9.5 L Hct 30.9 L D 28.6 L Anion Gap 7 L Random Glucose Calcium 7.8 L AST 12 L Total Protein 5.8 L Albumin 3.3 L 05/25/17 05:35 RBC Hgb Hct Anion Gap Random Glucose 219 H D Calcium 7.7 L AST Total Protein Albumin CT head: mild to moderate ventricular dilatation more than expected considering cortical atrophy. F/U CT scan or MRI to rule out ventriculomegaly Assessment/ Plan: 56yo M with hx of DM and HTN presented to the ED due to dizziness, fatigue/ lightheadedness, SOB was found to be anemic and was transfused with 1 PRBC. # anemia secondary to upper or lower GI bleed - GI on board. bowel prep today, plan on EGD & colonoscopy Wednesday - protonix 40mg BID - tylenol 650 q6h prn pain - transfused 1 PRBC, HgB improved, patient no longer symptomatic. - B12, folate, iron, TIBC, ferritin wnl # DM - ISS, BGM # HTN - currently controlled. - home med lisinopril 20mg qd - on hold - Norvasc 10mg qd- on hold # head CT finding of ventricular dilation - patient is asymptomatic - f/u outpatient with CT or MRI to rule out ventriculomegaly. # FEN - F: bowel prep - E: wnl - N: clear liquid, NPO after midnight
[2017-05-25 07:01] LABS: ANION GAP 9 (8-16); BLOOD UREA NITROGEN 12 mg/dL (7-18); CALCIUM 7.7 mg/dL (8.5-10.1); CHLORIDE 104 mmol/L (98-107); CO2 24 mmol/L (21-32); CREATININE 0.8 mg/dL (0.7-1.3); GLUCOSE,RANDOM 219 mg/dL (74-106); SODIUM 137 mmol/L (136-145)
[2017-05-25 07:14] LABS: HEMATOCRIT 28.6 % (35.4-49); HEMOGLOBIN 9.5 GM/dL (11.7-16.9); MCH 30.2 pg (25.7-33.7); MCHC 33.1 g/dl (32.0-35.9); MEAN CELL VOLUME 91.3 fl (80-96); MEAN PLT VOLUME 9.6 fl (7.5-11.1); PLATELET COUNT 159 K/MM3 (134-434); RBC 3.14 M/mm3 (4.00-5.60); RDW 14.6 % (11.9-15.9)
--- NOTE | 2017-05-25 08:09 | PN ---
<Leoncio Mason - Last Filed: 05/25/17 14:11> Physical Exam: SUBJECTIVE: Patient seen and examined No acute events overnight. Pt denies lightheadedness, SOB, chest pain, abdominal pain, n/v. He states that he has not had a BM since coming into the hospital. OBJECTIVE: Vital Signs Period Temp Pulse Resp BP Sys/Rivera Pulse Ox Last 24 Hr 98.2 F-98.9 F 86-108 18-18 123-137/70-85 100-100 GENERAL: The patient is awake, alert, and fully oriented, in no acute distress. HEENT: NC, AT LUNGS: Breath sounds equal, clear to auscultation bilaterally, no wheezes, no crackles, no accessory muscle use. HEART: Regular rate and rhythm, S1, S2 without murmur, rub or gallop. ABDOMEN: Soft, nontender, nondistended, normoactive bowel sounds, no guarding, no rebound, no hepatosplenomegaly, no masses. EXTREMITIES: 2+ pulses, warm, well-perfused, no edema. NEUROLOGICAL: Cranial nerves II through XII grossly intact. Normal speech, gait not observed. Laboratory Results - last 24 hr 05/24/17 05/24/17 05/24/17 09:16 09:16 11:09 WBC 9.7 RBC 3.40 L D Hgb 10.3 L D Hct 30.9 L D MCV 90.7 MCH 30.2 MCHC 33.3 RDW 14.2 Plt Count 161 MPV 8.5 Neutrophils % 77.5 Lymphocytes % 13.8 D Monocytes % 8.1 Eosinophils % 0.3 Basophils % 0.3 Sodium 139 Potassium 3.9 Chloride 107 Carbon Dioxide 25 Anion Gap 7 L BUN 15 D Creatinine 0.8 Creat Clearance w eGFR > 60 POC Glucometer 91 Random Glucose 93 Calcium 7.8 L Phosphorus 3.0 Magnesium 1.9 Total Bilirubin 0.8 D AST 12 L ALT 15 D Alkaline Phosphatase 70 Total Protein 5.8 L Albumin 3.3 L 05/24/17 05/24/17 05/25/17 17:19 21:21 05:35 WBC 6.0 D RBC 3.14 L Hgb 9.5 L Hct 28.6 L MCV 91.3 MCH 30.2 MCHC 33.1 RDW 14.6 Plt Count 159 MPV 9.6 D Neutrophils % Lymphocytes % Monocytes % Eosinophils % Basophils % Sodium Potassium Chloride Carbon Dioxide Anion Gap BUN Creatinine Creat Clearance w eGFR POC Glucometer 245 287 Random Glucose Calcium Phosphorus Magnesium Total Bilirubin AST ALT Alkaline Phosphatase Total Protein Albumin 05/25/17 05/25/17 05:35 06:41 WBC RBC Hgb Hct MCV MCH MCHC RDW Plt Count MPV Neutrophils % Lymphocytes % Monocytes % Eosinophils % Basophils % Sodium 137 Potassium 4.0 Chloride 104 Carbon Dioxide 24 Anion Gap 9 BUN 12 Creatinine 0.8 Creat Clearance w eGFR POC Glucometer 257 Random Glucose 219 H D Calcium 7.7 L Phosphorus Magnesium Total Bilirubin AST ALT Alkaline Phosphatase Total Protein Albumin Active Medications Generic Name Dose Route Start Last Admin Trade Name Freq PRN Reason Stop Dose Admin Acetaminophen 650 mg 05/23/17 21:54 05/24/17 19:04 Tylenol - PO 650 mg Q6H PRN Administration PAIN LEVEL 1-5 Atorvastatin Calcium 10 mg 05/23/17 22:30 05/24/17 22:42 Lipitor - PO 10 mg HS ROX Administration Benzocaine 1 applic 05/24/17 16:28 05/24/17 17:27 Anbesol - MM 1 applic Q6H PRN Administration tooth pain Bisacodyl 20 mg 05/25/17 11:47 Dulcolax - PO 05/25/17 11:48 ONCE ONE Insulin Aspart 1 vial 05/24/17 16:30 05/25/17 06:46 Novolog Vial Sliding Scale - SQ 6 units ACHS ROX Administration Protocol Pantoprazole Sodium 40 mg 05/23/17 22:15 05/24/17 22:41 Protonix Iv IVPUSH 40 mg BID ROX Administration Polyethylene Glycol/Electrolytes 4,000 ml 05/25/17 17:00 Golytely Solution - PO 05/25/17 17:01 ONCE ONE ASSESSMENT/PLAN: 56M with hx of DM and HTN who presents with shortness of breath, admitted for anemia workup. #normocytic anemia - Most likely cause of IVAN - Hgb of 9.5 today, down from 10.3. - s/p 1 U of PRBCs on 05/24 - Protonix - NPO - GI on board, recs appreciated. pt to get EGD and colonoscopy on - B12 and folate wnl - ferritin: wnl #IVAN -likely 2/2 anemia - Echo: mild MR, TR, and pulmonic valvular regurgitation -EKG: normal, trops negative #DM - BGM - ISS -home long acting insulin held as pt is only on clears #HTN - Hold home norvasc #HLD -continue home lipitor #FEN/ppx -po fluids -electrolytes wnl -clear liquid diet -protonix -heparin held after midnight for procedure Case discussed with attending, Dr. Fischer. -Leoncio Mason MD PGY1 Visit type - Emergency Visit Emergency Visit: Yes ED Registration Date: 05/23/17 Care time: The patient presented to the Emergency Department on the above date and was hospitalized for further evaluation of their emergent condition. - New Patient This patient is new to me today: No - Critical Care Critical Care patient: No <AmadoXin - Last Filed: 05/25/17 15:11> Physical Exam: patient seen and examined at 12:[address] Mason. Agree with above findings and plan of care with exceptions mentioned below. O/E: General: sitting in bed, on phone, in no acute distress Abdomen: soft, NT, ND, positive bowel sounds extremities: no edema Chest: CTAB, no rales or wheezing Assessment/Plan: -Symptomatic normocytic anemia -Occult GI bleed -Dyspnea on exertion, resolved -IDDM -HTN Plan; For EGD/colonoscopy in AM. s/p 1 unit pRBC on 05/24 with appropriate response. Clears today, bowel prep, NPO after midnight. PPI Hold lantus/oral hypoglycemics. ISS. Hold norvasc, resume in 24 hours as able Dispo possible d/c home in 24 hours pending EGD/colonoscopy results if no new events. Plan discussed with patient in detail, all questions answered.
[2017-05-25 08:10] LABS: SERUM IRON SATURATION 23 % (15-55); TOTAL IRON BINDING CAPACITY 265 ug/dL (250-450); UIBC 204 ug/dL (111-343)
[2017-05-25] MEDS: PANTOPRAZOLE SODIUM 40 MG VIAL IVPUSH SCH ×2 (10:25→21:50)
[2017-05-25] MEDS ORDERED: BISACODYL 5 MG TABLET.DR (FP) PO ONE (11:47)
[2017-05-25] MEDS ORDERED: PEG 3350/NA SULF BICARB CL/KCL 4000 ML SOLN.RECON PO ONE (17:00)
[2017-05-25] MEDS: ACETAMINOPHEN 325 MG TABLET (FP) PO PRN (18:00)
[2017-05-25] MEDS: ATORVASTATIN CA 10 MG TABLET (FP) PO SCH (21:49)
[2017-05-26] MEDS: INSULIN SLIDING SCALE (NOVOLOG) 1 VIAL SQ SCH ×4 (06:06→22:24)
--- NOTE | 2017-05-26 06:43 | MSN ---
Progress Note (short form) - Note Progress Note: Subjective: Patient has no complaints this morning. States he started his bowel prep at 6pm yesterday and was NPO after midnight. Had bowel movements since 3am due to bowel prep described as dark muddy stool. Denies dizziness, lightheadedness, SOB , chest pain or abdominal pain. Objective: Last Vital Signs Temp Pulse Resp BP Pulse Ox 98.5 F 80 20 122/73 97 05/26/17 06:00 05/26/17 06:00 05/26/17 06:00 05/26/17 06:00 05/25/17 21:00 Intake & Output 05/23/17 05/24/17 05/25/17 05/26/17 23:59 23:59 23:59 23:59 Intake Total 1300 2720 Output Total 600 Balance 700 2720 Weight 184 lb 4 oz General: Patient appears well and in no acute distress. HEENT: normocephalic, atraumatic. PERRL, mucous membranes moist. trachea midline. Heart: RRR. no rubs, murmurs or gallops appreciated. Lungs: CTA B/L. No wheezing, rales or rhonci appreciated. Abdomen: normoactive sounds x4, soft, nontender to palpation. Extremities: 2+ pulses throughout UE and LE. No edema noted. CBC, BMP 05/26/17 07:12 05/26/17 07:12 Abnormal Lab Results 05/26/17 05/26/17 07:12 07:12 RBC 3.18 L Hgb 9.6 L Hct 29.1 L Monocytes % 11.3 H Random Glucose 237 H Calcium 8.1 L Imaging: CT head: mild to moderate ventricular dilatation more than expected considering cortical atrophy. F/U CT scan or MRI to rule out ventriculomegaly Assessment/ Plan: 56yo M with hx of DM and HTN presented to the ED due to dizziness, fatigue/ lightheadedness, SOB was found to be anemic and was transfused with 1 PRBC. # anemia secondary to upper or lower GI bleed - GI on board: EGD performed 05/26 showed bleeding gastric ulcer which was clipped. sample taken for biopsy - colonoscopy re-scheduled for tomorrow due to incomplete bowel prep. - protonix 40mg BID - tylenol 650 q6h prn pain - transfused 1 PRBC on 04/23, HgB improved, patient no longer symptomatic. - B12, folate, iron, TIBC, ferritin wnl # DM - ISS, BGM # HTN - currently controlled. - home med lisinopril 20mg qd - on hold - Norvasc 10mg qd- on hold # head CT finding of ventricular dilation - patient is asymptomatic - f/u outpatient with CT or MRI to rule out ventriculomegaly. # FEN - F: bowel prep - E: wnl - N: clear liquid, NPO after midnight except for bowel prep.
[2017-05-26 07:38] LABS: BASO % 0.5 % (0-2.0); EOS % 0.9 % (0-4.5); HEMATOCRIT 29.1 % (35.4-49); HEMOGLOBIN 9.6 GM/dL (11.7-16.9); LYMPH % 29.5 % (8-40); MCH 30.1 pg (25.7-33.7); MCHC 32.9 g/dl (32.0-35.9); MEAN CELL VOLUME 91.6 fl (80-96); MONO % 11.3 % (3.8-10.2); NEUT % 57.8 % (42.8-82.8); PLATELET COUNT 182 K/MM3 (134-434); RBC 3.18 M/mm3 (4.00-5.60); RDW 14.7 % (11.9-15.9); WHITE BLOOD COUNT 4.4 K/mm3 (4.0-10.0)
[2017-05-26 07:49] LABS: ANION GAP 11 (8-16); BLOOD UREA NITROGEN 7 mg/dL (7-18); CALCIUM 8.1 mg/dL (8.5-10.1); CHLORIDE 101 mmol/L (98-107); CO2 25 mmol/L (21-32); CREATININE 0.7 mg/dL (0.7-1.3); GLUCOSE,RANDOM 237 mg/dL (74-106); SODIUM 137 mmol/L (136-145)
[2017-05-26] MEDS ORDERED: PROPOFOL 20 ML ONE ×5 (08:35→09:36)
[2017-05-26] MEDS ORDERED: LIDOCAINE HCL 2% (20ML MULTI-DOSE VIAL) NR ONE (08:35)
[2017-05-26] MEDS ORDERED: EPINEPHrine 1:10,000 (P-F SYR) 1 MG/10 ML DISP.SYRIN IVPUSH ONE (09:06)
[2017-05-26] MEDS ORDERED: EPINEPHrine 1:10,000 (P-F SYR) 1 MG/10 ML DISP.SYRIN ONE (09:33)
--- NOTE | 2017-05-26 09:42 | PROC ---
Endoscopy Procedure Endoscopy procedure completed. Please see scanned procedure report. Actively bleeding small duodenal ulcer was found, injected with epinephrine, clipped and tattooed. Biopsies taken. CBC daily Clear liquid diet today Inadequate colon prep. Reschedule colonoscopy to tomorrow
[2017-05-26] MEDS: PANTOPRAZOLE SODIUM 40 MG VIAL IVPUSH SCH ×2 (10:08→22:21)
[2017-05-26] MEDS ORDERED: BISACODYL 5 MG TABLET.DR (FP) PO ONE ×2 (10:15→14:15)
[2017-05-26] MEDS: SUCRALFATE 1 GM/10 ML UNIT DOSE CUPS PO SCH ×3 (12:08→22:21)
--- NOTE | 2017-05-26 12:56 | PN ---
Teaching Attending Note Name of Resident: Leoncio Mason ATTENDING PHYSICIAN STATEMENT Time of evaluation: 10:20 AM I saw and evaluated the patient. I reviewed the resident's note and discussed the case with the resident. I agree with the resident's findings and plan as documented. SUBJECTIVE: Patient seen and examined, coming back from endoscopy, no complaints, Reports was incomplete bowel prep. OBJECTIVE: Vital Signs Period Temp Pulse Resp BP Sys/Rivera Pulse Ox Last 24 Hr 98.1 F-99.5 F 80-101 18-20 113-154/69-89 97-100 Intake & Output 05/23/17 05/24/17 05/25/17 05/26/17 23:59 23:59 23:59 23:59 Intake Total 1300 2720 800 Output Total 600 Balance 700 2720 800 Weight 184 lb 4 oz General: lying in stretcher, no acute distress Abdomen: soft, mild distension, NT, positive bowel sounds Home Medication List Medication Instructions Recorded Confirmed Type Amlodipine Besylate [Norvasc -] 10 mg PO DAILY 05/23/17 05/23/17 History Atorvastatin Ca [Lipitor] 10 mg PO DAILY 05/23/17 05/23/17 History Glipizide [Glipizide ER] 10 mg PO BID 05/23/17 05/23/17 History Insulin Glargine,Hum.rec.anlog 0 unit SQ HS 05/23/17 05/23/17 History [Lantus] Metformin HCl [Metformin HCl ER] 1,000 mg PO BID 05/23/17 05/23/17 History Lisinopril 20 mg PO DAILY 05/24/17 05/24/17 History Active Medications Generic Name Dose Route Start Last Admin Trade Name Freq PRN Reason Stop Dose Admin Acetaminophen 650 mg 05/23/17 21:54 05/25/17 18:00 Tylenol - PO 650 mg Q6H PRN Administration PAIN LEVEL 1-5 Atorvastatin Calcium 10 mg 05/23/17 22:30 05/25/17 21:49 Lipitor - PO 10 mg HS ROX Administration Benzocaine 1 applic 05/24/17 16:28 05/24/17 17:27 Anbesol - MM 1 applic Q6H PRN Administration tooth pain Insulin Aspart 1 vial 05/24/17 16:30 05/26/17 06:06 Novolog Vial Sliding Scale - SQ Not Given ACHS ROX Protocol Pantoprazole Sodium 40 mg 05/23/17 22:15 05/25/17 21:50 Protonix Iv IVPUSH 40 mg BID [facility] Administration Polyethylene Glycol/Electrolytes 4,000 ml 05/26/17 17:00 Golytely Solution - PO 05/26/17 17:01 ONCE ONE Sucralfate 1 gm 05/26/17 11:00 Carafate Oral Suspension - PO ACHS [facility] Laboratory Results - last 24 hr 05/25/17 05/25/17 05/26/17 16:58 21:49 05:37 WBC RBC Hgb Hct MCV MCH MCHC RDW Plt Count MPV Neutrophils % Lymphocytes % Monocytes % Eosinophils % Basophils % Sodium Potassium Chloride Carbon Dioxide Anion Gap BUN Creatinine POC Glucometer 201 197 212 Random Glucose Calcium 05/26/17 05/26/17 07:12 07:12 WBC 4.4 RBC 3.18 L Hgb 9.6 L Hct 29.1 L MCV 91.6 MCH 30.1 MCHC 32.9 RDW 14.7 Plt Count 182 MPV 9.0 Neutrophils % 57.8 D Lymphocytes % 29.5 D Monocytes % 11.3 H Eosinophils % 0.9 D Basophils % 0.5 Sodium 137 Potassium 4.0 Chloride 101 Carbon Dioxide 25 Anion Gap 11 BUN 7 D Creatinine 0.7 POC Glucometer Random Glucose 237 H Calcium 8.1 L ASSESSMENT AND PLAN: 56 yom admitted with symptomatic anemia, pos FOBT, found with bleeding duodenal ulcer s/p clipping, pending colonoscopy now -Symptomatic normocytic anemia -Acute upper GI haemorrhage from bleeding duodenal ulcer s/p clipping/ epinephrine/biopsy/tattoo -Dyspnea on exertion, resolved -IDDM -HTN Plan; EGD results noted, PPI IV BID and sucralfate. FOllow up biopsies, outpatient GI follow up. Incomplete prep for colonosocpy, plan to repeat tomorrow, will follow up. s/p 1 unit pRBC on 05/24 with appropriate response. Hold lantus/oral hypoglycemics. ISS. Hold norvasc, resume in 24 hours as able Dispo possible d/c home in 24 hours pending colonoscopy results if no new events. Plan discussed with patient in detail, all questions answered.
--- NOTE | 2017-05-26 13:56 | PN ---
Physical Exam: SUBJECTIVE: Patient seen and examined No acute events overnight. Pt denies lightheadedness, SOB, chest pain, abdominal pain, n/v, and dysuria. OBJECTIVE: Vital Signs Period Temp Pulse Resp BP Sys/Rivera Pulse Ox Last 24 Hr 98.1 F-99.5 F 80-101 18-20 113-154/69-89 97-100 GENERAL: The patient is awake, alert, and fully oriented, in no acute distress. HEENT: NC, AT LUNGS: Breath sounds equal, clear to auscultation bilaterally, no wheezes, no crackles, no accessory muscle use. HEART: Regular rate and rhythm, S1, S2 without murmur, rub or gallop. ABDOMEN: Soft, nontender, nondistended, normoactive bowel sounds, no guarding, no rebound, no hepatosplenomegaly, no masses. EXTREMITIES: 2+ pulses, warm, well-perfused, no edema. NEUROLOGICAL: Cranial nerves II through XII grossly intact. Normal speech, gait not observed. Laboratory Results - last 24 hr 05/25/17 05/25/17 05/26/17 16:58 21:49 05:37 WBC RBC Hgb Hct MCV MCH MCHC RDW Plt Count MPV Neutrophils % Lymphocytes % Monocytes % Eosinophils % Basophils % Sodium Potassium Chloride Carbon Dioxide Anion Gap BUN Creatinine POC Glucometer 201 197 212 Random Glucose Calcium 05/26/17 05/26/17 05/26/17 07:12 07:12 13:07 WBC 4.4 RBC 3.18 L Hgb 9.6 L Hct 29.1 L MCV 91.6 MCH 30.1 MCHC 32.9 RDW 14.7 Plt Count 182 MPV 9.0 Neutrophils % 57.8 D Lymphocytes % 29.5 D Monocytes % 11.3 H Eosinophils % 0.9 D Basophils % 0.5 Sodium 137 Potassium 4.0 Chloride 101 Carbon Dioxide 25 Anion Gap 11 BUN 7 D Creatinine 0.7 POC Glucometer 307 Random Glucose 237 H Calcium 8.1 L Active Medications Generic Name Dose Route Start Last Admin Trade Name Freq PRN Reason Stop Dose Admin Acetaminophen 650 mg 05/23/17 21:54 05/25/17 18:00 Tylenol - PO 650 mg Q6H PRN Administration PAIN LEVEL 1-5 Atorvastatin Calcium 10 mg 05/23/17 22:30 05/25/17 21:49 Lipitor - PO 10 mg HS ROX Administration Benzocaine 1 applic 05/24/17 16:28 05/24/17 17:27 Anbesol - MM 1 applic Q6H PRN Administration tooth pain Insulin Aspart 1 vial 05/24/17 16:30 05/26/17 06:06 Novolog Vial Sliding Scale - SQ Not Given ACHS ROX Protocol Pantoprazole Sodium 40 mg 05/23/17 22:15 05/26/17 10:08 Protonix Iv IVPUSH 40 mg BID ROX Administration Polyethylene Glycol/Electrolytes 4,000 ml 05/26/17 17:00 Golytely Solution - PO 05/26/17 17:01 ONCE ONE Sucralfate 1 gm 05/26/17 11:00 05/26/17 12:08 Carafate Oral Suspension - PO 1 gm ACHS ROX Administration ASSESSMENT/PLAN: 56M with hx of DM and HTN who presents with shortness of breath, admitted for anemia workup. #normocytic anemia - Most likely cause of IVAN - Hgb of 9.6 today, stable - s/p 1 U of PRBCs on 05/24 - Protonix - NPO - GI on board, recs appreciated. - B12 and folate wnl - ferritin: wnl -s/p endoscopy 05/26: bleeding duodenal ulcer found, clipped. colonoscopy unable to be performed due to incomplete bowel prep. will retry leesa. #IVAN -likely 2/2 anemia - Echo: mild MR, TR, and pulmonic valvular regurgitation -EKG: normal, trops negative #DM - BGM - ISS -home long acting insulin held as pt is only on clears #HTN - Hold home norvasc #HLD -continue home lipitor #FEN/ppx -po fluids -electrolytes wnl -clear liquid diet, NPO after midnight -protonix -heparin held for procedure #Dispo -pending colonoscopy which will be performed leesa. Case discussed with attending, Dr. Fischer. -Leoncio Mason MD PGY1 Visit type - Emergency Visit Emergency Visit: Yes ED Registration Date: 05/23/17 Care time: The patient presented to the Emergency Department on the above date and was hospitalized for further evaluation of their emergent condition. - New Patient This patient is new to me today: No - Critical Care Critical Care patient: No
[2017-05-26] MEDS ORDERED: INSULIN (NOVOLOG) ASPART 100 UNITS/ML 10ML VIAL ONE (13:57)
[2017-05-26] MEDS ORDERED: PEG 3350/NA SULF BICARB CL/KCL 4000 ML SOLN.RECON PO ONE (17:00)
[2017-05-26] MEDS: ATORVASTATIN CA 10 MG TABLET (FP) PO SCH (22:21)
[2017-05-27] MEDS: INSULIN SLIDING SCALE (NOVOLOG) 1 VIAL SQ SCH ×2 (06:56→11:14)
[2017-05-27 07:12] LABS: BASO % 0.5 % (0-2.0); EOS % 0.8 % (0-4.5); HEMATOCRIT 26.9 % (35.4-49); HEMOGLOBIN 9.2 GM/dL (11.7-16.9); LYMPH % 33.4 % (8-40); MCH 31.2 pg (25.7-33.7); MCHC 34.1 g/dl (32.0-35.9); MEAN CELL VOLUME 91.3 fl (80-96); MEAN PLT VOLUME 8.9 fl (7.5-11.1); MONO % 9.5 % (3.8-10.2); NEUT % 55.8 % (42.8-82.8); PLATELET COUNT 204 K/MM3 (134-434); RBC 2.94 M/mm3 (4.00-5.60); RDW 15.1 % (11.9-15.9); WHITE BLOOD COUNT 4.7 K/mm3 (4.0-10.0)
[2017-05-27] MEDS: SUCRALFATE 1 GM/10 ML UNIT DOSE CUPS PO SCH ×2 (07:35→10:52)
[2017-05-27 07:43] LABS: ALBUMIN 2.8 g/dl (3.4-5.0); ALK PHOS 66 U/L (45-117); ANION GAP 11 (8-16); BILIRUBIN,TOTAL 0.5 mg/dL (0.2-1.0); BLOOD UREA NITROGEN 5 mg/dL (7-18); CALCIUM 7.9 mg/dL (8.5-10.1); CHLORIDE 104 mmol/L (98-107); CO2 26 mmol/L (21-32); CREATININE 0.8 mg/dL (0.7-1.3); GLUCOSE,RANDOM 190 mg/dL (74-106); POTASSIUM 3.7 mmol/L (3.5-5.1); SGOT/AST 13 U/L (15-37); SGPT/ALT 16 U/L (12-78); SODIUM 141 mmol/L (136-145); TOT PROT 5.6 g/dl (6.4-8.2)
--- NOTE | 2017-05-27 08:24 | PN ---
Teaching Attending Note Name of Resident: Leoncio Mason ATTENDING PHYSICIAN STATEMENT Time of evaluation: 11:10 AM I saw and evaluated the patient. I reviewed the resident's note and discussed the case with the resident. I agree with the resident's findings and plan as documented. SUBJECTIVE: Patient seen and examined. no complaints, tolerating diet well, eager to go home. OBJECTIVE: Vital Signs Period Temp Pulse Resp BP Sys/Rivera Pulse Ox Last 24 Hr 97.3 F-98.6 F 79-109 18-20 118-154/72-91 97-100 Intake & Output 05/24/17 05/25/17 05/26/17 05/27/17 23:59 23:59 23:59 23:59 Intake Total 1300 2720 2800 Output Total 600 Balance 700 2720 2800 General: sitting in bed in no acute distress Abdomen: soft, NT, ND, positive bowel sounds Home Medication List Medication Instructions Recorded Confirmed Type Amlodipine Besylate [Norvasc -] 10 mg PO DAILY 05/23/17 05/23/17 History Atorvastatin Ca [Lipitor] 10 mg PO DAILY 05/23/17 05/23/17 History Glipizide [Glipizide ER] 10 mg PO BID 05/23/17 05/23/17 History Insulin Glargine,Hum.rec.anlog 0 unit SQ HS 05/23/17 05/23/17 History [Lantus] Metformin HCl [Metformin HCl ER] 1,000 mg PO BID 05/23/17 05/23/17 History Lisinopril 20 mg PO DAILY 05/24/17 05/24/17 History Active Medications Generic Name Dose Route Start Last Admin Trade Name Freq PRN Reason Stop Dose Admin Acetaminophen 650 mg 05/23/17 21:54 05/25/17 18:00 Tylenol - PO 650 mg Q6H PRN Administration PAIN LEVEL 1-5 Atorvastatin Calcium 10 mg 05/23/17 22:30 05/26/17 22:21 Lipitor - PO 10 mg HS ROX Administration Benzocaine 1 applic 05/24/17 16:28 05/24/17 17:27 Anbesol - MM 1 applic Q6H PRN Administration tooth pain Insulin Aspart 1 vial 05/24/17 16:30 05/27/17 06:56 Novolog Vial Sliding Scale - SQ Not Given ACHS ROX Protocol Pantoprazole Sodium 40 mg 05/23/17 22:15 05/26/17 22:21 Protonix Iv IVPUSH 40 mg BID ROX Administration Sucralfate 1 gm 05/26/17 11:00 05/27/17 07:35 Carafate Oral Suspension - PO 1 gm ACHS ROX Administration Laboratory Results - last 24 hr 05/23/17 05/26/17 05/26/17 16:40 13:07 22:23 WBC RBC Hgb Hct MCV MCH MCHC RDW Plt Count MPV Neutrophils % Lymphocytes % Monocytes % Eosinophils % Basophils % POC Glucometer 307 239 Blood Type O POSITIVE Antibody Screen Negative Crossmatch See Detail 05/27/17 05/27/17 05:35 06:52 WBC 4.7 RBC 2.94 L Hgb 9.2 L Hct 26.9 L MCV 91.3 MCH 31.2 MCHC 34.1 RDW 15.1 Plt Count 204 MPV 8.9 Neutrophils % 55.8 Lymphocytes % 33.4 Monocytes % 9.5 Eosinophils % 0.8 Basophils % 0.5 POC Glucometer 228 Blood Type Antibody Screen Crossmatch ASSESSMENT AND PLAN: 56 yom admitted with symptomatic anemia, pos FOBT, found with bleeding duodenal ulcer s/p clipping, pending colonoscopy now -Symptomatic normocytic anemia -Acute upper GI haemorrhage from bleeding duodenal ulcer s/p clipping/ epinephrine/biopsy/tattoo on 05/26 -Dyspnea on exertion, resolved -IDDM -HTN Plan; EGD results noted, PPI BID and sucralfate. FOllow up biopsies, outpatient GI follow up. s/p 3 dimunitive colonic polyps, s/p resection/biopsy, outpatient follow up. s/p 1 unit pRBC on 05/24 with appropriate response. resume home DM regimen on dc Resume norvasc on d.c Dispo home today on PPI/sucralfate with outpatient GI follow up. Plan discussed with patient in detail, all questions answered.
[2017-05-27] MEDS ORDERED: LIDOCAINE HCL/PF 2% SDV 5ML VIAL ONE (08:27)
[2017-05-27] MEDS ORDERED: PROPOFOL 20 ML ONE ×3 (08:28)
--- NOTE | 2017-05-27 09:05 | PROC ---
Endoscopy Procedure Endoscopy procedure completed. Please see scanned procedure report. 3 dimunitive polyps were found on otherwise normal colonoscopy. Follow polypectomy results in 1-2 weeks as OP resume low cholesterol diet
[2017-05-27 09:18] VITALS: TEMP 97.9
[2017-05-27 09:28] VITALS: BP 137/84; PULSE 69
[2017-05-27 10:24] LABS: BASO % 0.4 % (0-2.0); EOS % 0.6 % (0-4.5); HEMOGLOBIN 8.8 GM/dL (11.7-16.9); LYMPH % 26.1 % (8-40); MCH 31.2 pg (25.7-33.7); MCHC 33.9 g/dl (32.0-35.9); MEAN PLT VOLUME 8.8 fl (7.5-11.1); MONO % 8.8 % (3.8-10.2); NEUT % 64.1 % (42.8-82.8); PLATELET COUNT 210 K/MM3 (134-434); RBC 2.83 M/mm3 (4.00-5.60); RDW 14.7 % (11.9-15.9); WHITE BLOOD COUNT 4.7 K/mm3 (4.0-10.0)
[2017-05-27] MEDS: PANTOPRAZOLE SODIUM 40 MG VIAL IVPUSH SCH (10:52)
--- NOTE | 2017-05-27 13:35 | PATH ---
Surgical Pathology Report Patient Name: JOSE A RAMOS [facility]. Rec. #: [id number] /Age/Gender: 1960 (Age: 56) / M Account: [id number] Location: [facility] PEDS/ADOL Taken: 05/26/2017 Received: 05/26/2017 Reported: 05/27/2017 Physicians: Ayan Roberson M.D. Specimen(s) Received BX ANTRUM AND BODY Clinical History Preoperative diagnosis: Anemia, change in bowel habits Postoperative diagnosis: Duodenal ulcer bleeding, control of bleeding, inadequate colon prep Final Diagnosis STOMACH, ANTRUM AND BODY, BIOPSY: GASTRIC ANTRAL AND BODY MUCOSA WITH SEVERE CHRONIC GASTRITIS. IMMUNOHISTOCHEMICAL STAIN FOR H. PYLORI IS POSITIVE (FEW). Electronically Signed Monica Awan M.D. Gross Description Received in formalin, labeled "antrum and body" are 3 guillaume, irregular portions of soft tissue ranging from 0.2-0.3 cm. in greatest dimension. The specimens are submitted in toto in one cassette. 05/26/2017 [facility]05/26/2017
--- NOTE | 2017-05-27 16:14 | DS ---
Physical Exam: SUBJECTIVE: Patient seen and examined No acute events overnight. Pt denies lightheadedness, SOB, chest pain, abdominal pain, n/v, and dysuria. OBJECTIVE: Vital Signs Period Temp Pulse Resp BP Sys/Rivera Pulse Ox Last 24 Hr 97.3 F-98.9 F 69-109 18-20 117-146/73-91 97-100 PHYSICAL EXAM GENERAL: The patient is awake, alert, and fully oriented, in no acute distress. HEENT: NC, AT LUNGS: Breath sounds equal, clear to auscultation bilaterally, no wheezes, no crackles, no accessory muscle use. HEART: Regular rate and rhythm, S1, S2 without murmur, rub or gallop. ABDOMEN: Soft, nontender, nondistended, normoactive bowel sounds, no guarding, no rebound, no hepatosplenomegaly, no masses. EXTREMITIES: 2+ pulses, warm, well-perfused, no edema. NEUROLOGICAL: Cranial nerves II through XII grossly intact. Normal speech, gait not observed. LABS Laboratory Results - last 24 hr 05/23/17 05/26/17 05/27/17 16:40 22:23 05:35 WBC 4.7 RBC 2.94 L Hgb 9.2 L Hct 26.9 L MCV 91.3 MCH 31.2 MCHC 34.1 RDW 15.1 Plt Count 204 MPV 8.9 Neutrophils % 55.8 Lymphocytes % 33.4 Monocytes % 9.5 Eosinophils % 0.8 Basophils % 0.5 Sodium Potassium Chloride Carbon Dioxide Anion Gap BUN Creatinine Creat Clearance w eGFR POC Glucometer 239 Random Glucose Calcium Total Bilirubin AST ALT Alkaline Phosphatase Total Protein Albumin Blood Type O POSITIVE Antibody Screen Negative Crossmatch See Detail 05/27/17 05/27/17 05/27/17 05:35 06:52 09:45 WBC 4.7 RBC 2.83 L Hgb 8.8 L Hct 26.0 L MCV 92.0 MCH 31.2 MCHC 33.9 RDW 14.7 Plt Count 210 MPV 8.8 Neutrophils % 64.1 Lymphocytes % 26.1 D Monocytes % 8.8 Eosinophils % 0.6 Basophils % 0.4 Sodium 141 Potassium 3.7 Chloride 104 Carbon Dioxide 26 Anion Gap 11 BUN 5 L D Creatinine 0.8 Creat Clearance w eGFR > 60 POC Glucometer 228 Random Glucose 190 H Calcium 7.9 L Total Bilirubin 0.5 D AST 13 L ALT 16 Alkaline Phosphatase 66 Total Protein 5.6 L Albumin 2.8 L Blood Type Antibody Screen Crossmatch 05/27/17 11:12 WBC RBC Hgb Hct MCV MCH MCHC RDW Plt Count MPV Neutrophils % Lymphocytes % Monocytes % Eosinophils % Basophils % Sodium Potassium Chloride Carbon Dioxide Anion Gap BUN Creatinine Creat Clearance w eGFR POC Glucometer 250 Random Glucose Calcium Total Bilirubin AST ALT Alkaline Phosphatase Total Protein Albumin Blood Type Antibody Screen Crossmatch CXR: no acute pathology Head CT: no acute pathology Echo: no gross pathology HOSPITAL COURSE: Date of Admission:05/23/17 Date of Discharge: 05/27/17 56M with hx of DM and HTN who presented with shortness of breath, lightheadedness, and weakness, was found to have tachycardia, anemia, and a positive FOBT, admitted for anemia workup. His Hgb trended down, so a unit of PRBCs was given. Pt underwent endoscopy which showed a bleeding duodenal ulcer which was clipped. He also underwent a colonoscopy which showed 3 dimunitive polyps. Pt was treated with protonix and sucralfate. Today, pt has no complaints, has normal vitals, a benign physical exam, and is stable for discharge home. Pt instructed to f/u with PCP and GI to find out the results of the biopsies. Pt instructed to continue taking protonix and sucralfate and to get a CBC in one week to assess his anemia. Instructed to f/u with a dentist for his tooth pain. -Leoncio Mason MD PGY1 Minutes to complete discharge: 35 Discharge Summary Reason For Visit: ANEMIA, LOWER GASTROINTESTINAL HEMMORRHAGE Condition: Stable - Instructions Diet, Activity, Other Instructions: You presented with shortness of breath and were found to have anemia (low blood count). You were seen by a GI who performed an endoscopy and colonoscopy. You were found to have a bleeding duodenal ulcer which was clipped and several polyps in your colon. Medications: Continue taking all previous medications except for the followin. Take protonix 40mg, twice a day till further instructed by Dr. Galindo. 2. Take sucralfate 1g, four times a day. 3. For your diabetes, start taking lantus insulin 20 units at night instead of your usual 70 units before coming to the hospital. Check your sugars before meals and at bedtime and maintain a diary. If you sugars are persistently elevated > 200 your lantus will need to increased upto your home regimen. Please talk to your doctor about the same. Anticipate you will be able to resume home regimen of insulin over the next week. Your PCP can help with the process. Follow-ups: 1. Please visit your PCP within one week. If you don't have one, we have referred you to Dr. Roman's office. Please see Dr. Dueñas. Recommend CBC in 1 week with your doctor (blood work to monitor your hemoglobin), recommend interval CBC with your doctor to monitor your anemia 2. [place] visit GI, Dr. Galindo, in one week. Make sure to follow up on the results of the biopsies taken during your procedures (including ulcer and polyp biopsies). 3. Please visit a dentist in one week for your tooth pain. If you develop any shortness of breath, chest pain, vomiting blood, blood in your stool, or any other concerning symptoms, return to the ED. Referrals: Cory Roman MD [Staff Physician] - Rome Galindo MD [Staff Physician] - Disposition: HOME - Home Medications Comprehensive Discharge Medication List: Ambulatory Orders Amlodipine Besylate [Norvasc -] 10 mg PO DAILY 05/23/17 Atorvastatin Ca [Lipitor] 10 mg PO DAILY 05/23/17 Glipizide [Glipizide ER] 10 mg PO BID 05/23/17 Metformin HCl [Metformin HCl ER] 1,000 mg PO BID 05/23/17 Lisinopril 20 mg PO DAILY 05/24/17 Insulin Glargine,Hum.rec.anlog [Lantus] 20 unit SQ HS #0 units 05/27/17 Insulin Sliding Scale [Novolog Vial Sliding Scale -] 1 vial SQ ACHS #7 units 04/15 Pantoprazole Sodium [Protonix] 40 mg PO BID #60 tablet. 05/27/17 Sucralfate [Carafate -] 1 gm PO QID #120 tablet 05/27/17 This patient is new to me today: No Emergency Visit: Yes ED Registration Date: 05/23/17 Care time: The patient presented to the Emergency Department on the above date and was hospitalized for further evaluation of their emergent condition. Critical Care patient: No - Discharge Referral Referred to [facility] No
--- NOTE | 2017-05-28 14:38 | PATH ---
Surgical Pathology Report Patient Name: JOSE A RAMOS [facility]. Rec. #: [id number] /Age/Gender: 1960 (Age: 56) / M Account: [id number] Location: 4 SO PEDS/ADOL Taken: 05/27/2017 Received: 05/27/2017 Reported: 05/28/2017 Physicians: Rome Glaindo M.D. Specimen(s) Received A: BX ASCENDING COLON POLYP B: BX DESCENDING COLON POLYP C: BX SIGMOID POLYPS Clinical History Preoperative diagnosis: Biopsy ascending colon polyp Final Diagnosis A. COLON, ASCENDING, BIOPSY: COLONIC MUCOSA WITH NO PATHOLOGIC CHANGES. NO ACTIVE COLITIS, ARCHITECTURAL DISTORTION, GRANULOMATA, OR DYSPLASIA IDENTIFIED. NO MICROSCOPIC COLITIS IDENTIFIED (NO LYMPHOCYTIC OR COLLAGENOUS COLITIS IDENTIFIED). B. COLON, DESCENDING, BIOPSY: TUBULAR ADENOMA. C. COLON, SIGMOID, BIOPSY: HYPERPLASTIC POLYP. Electronically Signed Alejandro Felipe M.D. Gross Description A. Received in formalin, labeled "biopsy ascending colon polyp" is a guillaume, irregular portion of soft tissue measuring 0.3 cm. in greatest dimension. The specimen is submitted in toto in one cassette. B. Received in formalin, labeled "biopsy descending colon polyp" are 2 guillaume, irregular portions of soft tissue averaging 0.2 cm. in greatest dimension. The specimens are submitted in toto in one cassette. C. Received in formalin, labeled "biopsy sigmoid polyps" are 5 guillaume, irregular portions of soft tissue ranging from 0.2-0.5 cm. in greatest dimension. The specimens are submitted in toto in one cassette. /05/27/2017 saudi05/27/2017
== END 2017-05-27 13:55 | disposition home or self-care (01) | DRG 241 ==
LOC: JER 15:57 → JERBED 19:40 → J4S 20:58
PROVIDERS: ADMIT Internal Medicine; ATTEND Hospitalist
PROC: 30233N1 Transfusion of Nonautologous Red Blood Cells into Peripheral Vein, Percutaneous Approach (ICD-10-PCS; 2017-05-24)
PROC: 3E0G8GC Introduction of Other Therapeutic Substance into Upper GI, Via Natural or Artificial Opening Endoscopic (ICD-10-PCS; 2017-05-26)
PROC: 0D598ZZ Destruction of Duodenum, Via Natural or Artificial Opening Endoscopic (ICD-10-PCS; principal; 2017-05-26 10:30)
PROC: 0DBK8ZX Excision of Ascending Colon, Via Natural or Artificial Opening Endoscopic, Diagnostic (ICD-10-PCS; 2017-05-27)
PROC: 0DBM8ZX Excision of Descending Colon, Via Natural or Artificial Opening Endoscopic, Diagnostic (ICD-10-PCS; 2017-05-27)
PROC: 0DBN8ZX Excision of Sigmoid Colon, Via Natural or Artificial Opening Endoscopic, Diagnostic (ICD-10-PCS; 2017-05-27)
DX: K26.0 Acute duodenal ulcer with hemorrhage (principal); D12.2 Benign neoplasm of ascending colon; D12.4 Benign neoplasm of descending colon; D12.5 Benign neoplasm of sigmoid colon; D64.9 Anemia, unspecified; I10 Essential (primary) hypertension; E78.5 Hyperlipidemia, unspecified; Z87.891 Personal history of nicotine dependence; R00.0 Tachycardia, unspecified; I34.0 Nonrheumatic mitral (valve) insufficiency; I37.1 Nonrheumatic pulmonary valve insufficiency; I36.1 Nonrheumatic tricuspid (valve) insufficiency; E11.65 Type 2 diabetes mellitus with hyperglycemia; K29.50 Unspecified chronic gastritis without bleeding; B96.81 Helicobacter pylori [H. pylori] as the cause of diseases classified elsewhere
CPT/HCPCS: 36415; 36430; 70450-TC; 71045-TC-FY; 80048; 80053; 81003; 82272; 82550; 82553; 82607; 82728; 82746; 82962; 83540; 83550; 83735; 83880; 84100; 84484; 85025; 85027; 85610; 86850; 86900; 86901; 86922; 88305-TC; 93005; 93010; 93306-TC; 99283-25; J7030; P9038; P9058

== ENCOUNTER 2017-07-10 16:56 | Inpatient (IN) | payer OTHER ==
--- NOTE | 2017-07-10 17:20 | PDOC ---
History of Present Illness - General Chief Complaint: Blood Pressure Problem Stated Complaint: BLOOD PRESSURE Time Seen by Provider: 07/10/17 17:17 History Source: Patient, Significant Other Exam Limitations: No Limitations - History of Present Illness Initial Comments: Pt is a 56 yo M with PMHx of DM, and HTN, presenting with a one day hx of hypotension and lightheadedness. Pt usually takes his BP every morning. He did this am and it was normal. He went to the pharmacy to pick his recently prescribed lisinopril 40mg (dose escalated 06/18/17) after last taking lisinopril about 5days earlier because he ran out. While out shopping, with his significant other, he suddenly felt lightheaded and sweaty, but did not fall or lose consciousness (witnessed). No chest pain, palpitations or breathlessness. No seizures, bladder or bowel incontinence. He had her drive him home and lay flat at home at around 10.30am and try to take a nap. He tried to rehydrate with soups and salty foods, but became nauseous and vomited. He had 2 more episodes of nonbilous, non bloody vomit of recently ingested foods. Pt reported abdominal discomfort, but no pain. No dysuria, no melena, no fever. Pt has never had similar incidence in the past. Pt was recently discharged from [facility] following a work up for a GI work up for anemia with a diagnosis of duod ulcer that was clipped. 07/10/17 18:46 Timing/Duration: 4-6 hours, constant Severity: moderate Modifying Factors: improves with: rest Associated Symptoms: reports: diaphoresis, nausea/vomiting. denies: chest pain , cough, fever/chills, loss of appetite Past History - Past Medical History Allergies/Adverse Reactions: Allergies Allergy/AdvReac Type Severity Reaction Status Date / Time No Known Allergies Allergy Verified 07/10/17 17:08 Home Medications: Ambulatory Orders Amlodipine Besylate [Norvasc -] 10 mg PO DAILY 05/23/17 Atorvastatin Ca [Lipitor] 10 mg PO DAILY 05/23/17 Glipizide [Glipizide ER] 10 mg PO BID 05/23/17 Metformin HCl [Metformin HCl ER] 1,000 mg PO BID 05/23/17 Lisinopril 40 mg PO DAILY 05/24/17 Sucralfate [Carafate -] 1 gm PO QID #120 tablet 05/27/17 Asthma: No Cancer: No Cardiac Disorders: No CVA: No COPD: No CHF: No Dementia: No Diabetes: Yes GI Disorders: No Disorders: No HTN: Yes Hypercholesterolemia: Yes Liver Disease: No Seizures: No Thyroid Disease: No - Suicide/Smoking/Psychosocial Hx Smoking History: Never smoked Have you smoked in the past 12 months: No If you are a former smoker, when did you quit?: 2005 Information on smoking cessation initiated: No Hx Alcohol Use: Yes (casually.) Drug/Substance Use Hx: No Substance Use Type: Alcohol *Physical Exam - Vital Signs Last Vital Signs Temp Pulse Resp BP Pulse Ox 97.9 F 104 H 20 108/66 99 07/10/17 17:04 07/10/17 17:04 07/10/17 17:04 07/10/17 17:04 07/10/17 17:04 - Physical Exam Comments: Gen: Patient not in any obvious respiratory distress Chest: Clear to auscultation, no crepitations, rhonchi or wheezes Cardio: S1, S2, tachycardic, no murmurs, gallops or rubs Abd: Normoactive bowel sounds, Non tender, soft Extremities: peripheral pulses 2+ bilaterally, no pedal edema General Appearance: Yes: Appropriately Dressed HEENT: positive: Normal ENT Inspection, Pharynx Normal Neck: positive: Supple Heart Score/ECG Review - History History: Moderately suspicious - Age Age: 45-65 - Risk Factors Risk Factors Heart Score: Yes Hx Hypertension, Yes Hx Diabetes, Yes Smoking History ED Treatment Course - LABORATORY CBC & Chemistry Diagram: 07/10/17 18:30 07/10/17 18:30 Medical Decision Making - Medical Decision Making Patient looked sick and was still light headed with movement. Will do CBC to R/O anemia, with past hx of anemia requiring transfusion, secondary to DU in last admission. Will also do CMP, considering likely hypovolemia Will also do-lactic acid, troponins, BMP, D dimer, UA EKG was concerning for ST depression in lateral leads which was not present in previous EKG. Will do posterior wall EKG in setting of hypovolemia and tachycardia to R/O inferior wall ME Will rehydrate pt with normal saline and give ondansetron for nausea. Pt was signed out Dr Woodall for continuity of care *DC/Admit/Observation/Transfer Diagnosis at time of Disposition: Hypotension - Referrals Referrals: ON STAFF,NOT [Primary Care Provider] - - Patient Instructions - Post Discharge Activity
--- NOTE | 2017-07-10 17:58 | PDOC ---
*Physical Exam - Vital Signs Last Vital Signs Temp Pulse Resp BP Pulse Ox 97.9 F 104 H 20 108/66 99 07/10/17 17:04 07/10/17 17:04 07/10/17 17:04 07/10/17 17:04 07/10/17 17:04 *DC/Admit/Observation/Transfer - Referrals Referrals: ON STAFF,NOT [Primary Care Provider] - - Patient Instructions - Post Discharge Activity
[2017-07-10] MEDS ORDERED: ONDANSETRON 4 MG/2 ML VIAL IVPUSH ONE (17:59)
[2017-07-10] MEDS ORDERED: SODIUM CHLORIDE 1,000 ML IV STA (17:59)
[2017-07-10] MEDS ORDERED: ONDANSETRON 4 MG/2 ML VIAL ONE (18:54)
--- NOTE | 2017-07-10 18:59 | PDOC ---
Attending Attestation - Medical Decision Making EXAM: CT chest ABDOMEN \T\ PELVIS CT W/O CONTR HISTORY: Vomiting and abdominal pain COMPARISON: None. FINDINGS: Heart:: Normal Pericardium: not thickened Thoracic aorta and great vessels: Normal Superior vena cava and inferior vena cava: Normal Pulmonary arteries: Normal Thoracic esophagus: Normal Mediastinal lymph nodes: Normal Central airways: Normal Lungs: clear without focal consolidation Pleural spaces: Normal with no pneumothorax or pleural fluid Chest wall: Normal Abdomen Liver: Normal Spleen: Normal Pancreas: Normal Gallbladder: Normal Stomach: Normal Small bowel: Normal Large bowel: There is segmental thickening of the transverse colon with haziness in the surrounding fat. There are some colonic diverticula which do not appear specifically inflamed Appendix: Normal Adrenals:Normal Kidneys: Normal Vascular: Normal Lymphatic: Normal Peritoneal: No free peritoneal air or fluid Pelvis: Prostate: normal Rectum: Normal Bladder: Normal The inferior thorax: Normal General: Skeletal: Normal Abdominal wall: Normal IMPRESSION: Transverse colitis Read by: Driss Sandoval MD <Adriana Bower - Last Filed: 07/11/17 00:27> - Resident Resident Name: Ngozi Mercado I - ED Attending Attestation I have performed the following: I have examined & evaluated the patient, The case was reviewed & discussed with the resident, I agree w/resident's findings & plan, Exceptions are as noted - HPI HPI: 07/10/17 18:46 Mr Salinas is a 56-year-old male with a history of hypertension, insulin- dependent diabetes, recent admission for anemia associated with upper GI bleed ( status post endoscopy with treatment of bleeding ulcer). Patient states that he was started on lisinopril 40 mg daily approximately one month ago. He has not taken his lisinopril for the past 5 days. He took his lisinopril today at approximately 11:30 AM. After doing so he noted that he felt lightheaded, dizzy, weak. He became nauseous. Had multiple episodes of vomiting. Patient had no prior episodes like this after taking lisinopril. He denies actual chest pain. Has had no recent fevers or chills. No recent travel, lower extremity edema. Pt had an episode of pre syncope today Checked his blood pressure repeatedly and noted that he was hypotensive 07/10/17 18:51 - Physicial Exam PE: 07/10/17 18:50 GENERAL: The patient is in no acute distress, answers all questions appropriately, weak appearing. HEAD: Normal EYES: PERRLA, EOMI, sclera anicteric, conjunctiva clear. ENT: Ears normal, nares patent, oropharynx clear without exudates. Moist mucous membranes. NECK: Normal range of motion, supple without lymphadenopathy, JVD, or masses. LUNGS: Breath sounds equal, clear to auscultation bilaterally. No wheezes, and no crackles. HEART:Regular rate and rhythm, normal S1 and S2 without murmur, rub or gallop. ABDOMEN: Soft, nontender, normoactive bowel sounds. No guarding, no rebound. No masses palpable. EXTREMITIES: Normal range of motion, no edema. No clubbing or cyanosis. No erythema, or tenderness. NEUROLOGICAL: Cranial nerves II through XII grossly intact. Normal speech. No focal neurological deficits. MUSCULOSKELETAL: Back non-tender to palpation, no CVA tenderness SKIN: Warm, Dry, normal turgor, no rashes or lesions noted. - Medical Decision Making 07/10/17 18:59 This patient is a 56-year-old male presenting to the emergency department due to hypotension, nausea, diaphoresis after taking lisinopril 40 today. Patient denies chest pain. Patient has taken this medication for the past month, has not previously had symptoms like this. Differential diagnosis includes but is not limited to: ACS, PE, dehydration, anemia, dissection unlikely, pancreatitis Will do: Labs EKG Portable chest x-ray IV hydration Will reassess EKG: Sinus rhythm, rate of 94 bpm, axis is normal, intervals are normal, there are new T-wave inversions in lead 1, and aVL. No obvious ST elevations or depressions. 07/10/17 20:10 Laboratory Tests 05/27/17 05/27/17 07/10/17 05:35 09:45 18:30 WBC 4.7 11.6 H D Hgb 8.8 L 13.5 D Hct 26.0 L 40.1 D Plt Count 210 204 Sodium Potassium Chloride Carbon Dioxide Anion Gap BUN 5 L D Creatinine 0.8 Random Glucose 190 H Lactic Acid Creatine Kinase Creatine Kinase Index CK-MB (CK-2) Troponin I Lipase 07/10/17 07/10/17 07/10/17 18:30 18:30 18:34 WBC Hgb Hct Plt Count Sodium 135 L Potassium 3.7 Chloride 95 L Carbon Dioxide 29 Anion Gap 11 BUN 31 H D Creatinine 2.1 H D Random Glucose 165 H Lactic Acid 3.4 H* Creatine Kinase 340 H Creatine Kinase Index 0.9 CK-MB (CK-2) 3.070 Troponin I 0.03 D Lipase 146 Hgb elevated WBC elevated Creatinine elevated Pt bp low - 95/65 07/10/17 20:10 Lactate is 3.4 unclear if this is lactate is due to underlying infection VS. hypoperfusion from hypotension Awaiting UA ? Consider CT abd and pelvis 07/11/17 01:39 BP improved with IV hydration Pt admitted to hospitalist service Clinical Impression: Acute Renal Insufficiency, initial impression Transverse Colitis, initial presentation Hypotension, initial presentation <Jessica Gonzalez - Last Filed: 07/11/17 01:45> Discharge Disposition - Discharge Dispostion Last Admission D/C Date: 05/27/17 <Jessica Gonzalez - Last Filed: 07/11/17 01:45> - Diagnosis Hypotension - Referrals Referrals: ON STAFF,NOT [Primary Care Provider] - - Patient Instructions - Post Discharge Activity Attestations - Attestations 07/11/17 00:29 Documentation prepared by Adriana Bower, acting as pediatric medical assistant for Jessica Gonzalez MD. <Adriana Bower - Last Filed: 07/11/17 00:27>
[2017-07-10 19:06] LABS: BASO % 0.4 % (0-2.0); EOS % 0.1 % (0-4.5); HEMATOCRIT 40.1 % (35.4-49); HEMOGLOBIN 13.5 GM/dL (11.7-16.9); LYMPH % 9.6 % (8-40); MCH 29.6 pg (25.7-33.7); MCHC 33.7 g/dl (32.0-35.9); MEAN CELL VOLUME 87.8 fl (80-96); MEAN PLT VOLUME 9.9 fl (7.5-11.1); MONO % 7.1 % (3.8-10.2); NEUT % 82.8 % (42.8-82.8); PLATELET COUNT 204 K/MM3 (134-434); RBC 4.56 M/mm3 (4.00-5.60); WHITE BLOOD COUNT 11.6 K/mm3 (4.0-10.0)
--- NOTE | 2017-07-10 19:18 | PDOC ---
*Physical Exam - Vital Signs Last Vital Signs Temp Pulse Resp BP Pulse Ox 97.9 F 104 H 20 108/66 99 07/10/17 17:04 07/10/17 17:04 07/10/17 17:04 07/10/17 17:04 07/10/17 17:04 - Physical Exam General Appearance: Yes: Nourished, Appropriately Dressed Neck: positive: Trachea midline, Supple Respiratory/Chest: positive: Lungs Clear, Normal Breath Sounds Cardiovascular: positive: S1, S2. negative: Edema, JVD Gastrointestinal/Abdominal: positive: Normal Bowel Sounds, Soft. negative: Tenderness, Hernia, Mass Musculoskeletal: negative: CVA Tenderness (R), CVA Tenderness (L) Extremity: positive: Normal Capillary Refill, Normal Inspection Integumentary: positive: Normal Color, Dry, Warm Neurologic: positive: Fully Oriented, Alert ED Treatment Course - LABORATORY CBC & Chemistry Diagram: 07/11/17 07:55 07/11/17 07:55 - ADDITIONAL ORDERS Additional order review: 07/10/17 18:30 RBC 4.56 D MCV 87.8 MCHC 33.7 RDW 15.0 MPV 9.9 D Neutrophils % 82.8 D Lymphocytes % 9.6 D Monocytes % 7.1 Eosinophils % 0.1 D Basophils % 0.4 - Medications Given in the ED: ED Medications Discontinued Medications Generic Name Dose Route Start Last Admin Trade Name Freq PRN Reason Stop Dose Admin Sodium Chloride 1,000 mls @ 1,000 mls/hr 07/10/17 17:59 07/10/17 19:05 Normal Saline - IV 07/10/17 18:58 1,000 mls/hr ASDIR STA Administration Ondansetron HCl 4 mg 07/10/17 17:59 07/10/17 19:05 Zofran Injection IVPUSH 07/10/17 18:00 4 mg ONCE ONE Administration Medical Decision Making - Medical Decision Making 07/10/17 19:31 Patient signed out by Dr. Mercado (Resident) under the care of Dr. Gonzalez ( Attending) 56 year old male presents with acute onset of lightheadedness. BP 108/56 @ presentation then 88/54. Hypotension possibly 2/2 to medication non-adherence. Patient had not taken his Lisinopril for 5 days and then took the medication this morning. At presentation patient was noted to be diaphoretic. 07/10/17 19:44 Repeat BP 86/62, Lactate 3.4 -will give continue to hydrate. Clinical suspicion for medication induced hypotension with resulting lactate however however as patient has h/o nausea/emesis and multiple episodes of NB diarrhea prior to presentation will send for CT abdomen. Repeat VS pending. 07/10/17 20:56 Uneqal BP 90/65 R, 110/72 L -- patient denies chest back/back pain; soft, non- tender abdomen; bedside U/S shows normal sized aorta - CT chest pending. 07/10/17 22:[address]; resting comfortably. Repeat BP 106/62 (R) and 115/69 (L). Less likely dissection. CT abdomen shows transverse colitis. Will admit patient to inpatient medicine service for further evaluation. *DC/Admit/Observation/Transfer Diagnosis at time of Disposition: Hypotension - Discharge Dispostion Disposition: HOME Condition at time of disposition: Stable - Prescriptions - Referrals - Patient Instructions - Post Discharge Activity
[2017-07-10 19:30] LABS: ALBUMIN 3.7 g/dl (3.4-5.0); ANION GAP 11 (8-16); BILIRUBIN,TOTAL 0.4 mg/dL (0.2-1.0); BLOOD UREA NITROGEN 31 mg/dL (7-18); CALCIUM 8.6 mg/dL (8.5-10.1); CHLORIDE 95 mmol/L (98-107); CO2 29 mmol/L (21-32); CREATININE 2.1 mg/dL (0.7-1.3); GLUCOSE,RANDOM 165 mg/dL (74-106); POTASSIUM 3.7 mmol/L (3.5-5.1); SGOT/AST 15 U/L (15-37); SGPT/ALT 21 U/L (12-78); SODIUM 135 mmol/L (136-145)
[2017-07-10 19:33] LABS: ALK PHOS 98 U/L (45-117)
[2017-07-10] MEDS ORDERED: SODIUM CHLORIDE 0.9% 500 ML INFUS.BAG IV ONE ×2 (19:45→22:01)
--- NOTE | 2017-07-11 00:42 | PN ---
Teaching Attending Note Name of Resident: Lee Tijerina ATTENDING PHYSICIAN STATEMENT I saw and evaluated the patient. I reviewed the resident's note and discussed the case with the resident. I agree with the resident's findings and plan as documented. SUBJECTIVE: 56 y/o M presented to ED c/o dizziness and found to be hypotensive and muyltiple episodes of nonbloody diarrhea after taking lisinopril. Patient states he missed 5 days of lisinopril before restarting the meds. OBJECTIVE: GEN: A&Ox3, NAD HEENT: NC, PERRLA, EOMI, MMM CVS: RRR, S1, S2, no Murmur, gallop Lung: CTA Abd: Soft, nontender, no guarding or rebound Ext: nl ROM , 2+ pulses. CBCD WBC 11.6 K/mm3 (4.0-10.0) H D 07/10/17 18:30 RBC 4.56 M/mm3 (4.00-5.60) D 07/10/17 18:30 Hgb 13.5 GM/dL (11.7-16.9) D 07/10/17 18:30 Hct 40.1 % (35.4-49) D 07/10/17 18:30 MCV 87.8 fl (80-96) 07/10/17 18:30 MCHC 33.7 g/dl (32.0-35.9) 07/10/17 18:30 RDW 15.0 % (11.9-15.9) 07/10/17 18:30 Plt Count 204 K/MM3 (134-434) 07/10/17 18:30 MPV 9.9 fl (7.5-11.1) D 07/10/17 18:30 CMP Sodium 135 mmol/L (136-145) L 07/10/17 18:30 Potassium 3.7 mmol/L (3.5-5.1) 07/10/17 18:30 Chloride 95 mmol/L (98-107) L 07/10/17 18:30 Carbon Dioxide 29 mmol/L (21-32) 07/10/17 18:30 Anion Gap 11 (8-16) 07/10/17 18:30 BUN 31 mg/dL (7-18) H D 07/10/17 18:30 Creatinine 2.1 mg/dL (0.7-1.3) H D 07/10/17 18:30 Creat Clearance w eGFR 32.60 (>60) 07/10/17 18:30 Random Glucose 165 mg/dL (74-106) H 07/10/17 18:30 Calcium 8.6 mg/dL (8.5-10.1) 07/10/17 18:30 Total Bilirubin 0.4 mg/dL (0.2-1.0) 07/10/17 18:30 AST 15 U/L (15-37) 07/10/17 18:30 ALT 21 U/L (12-78) D 07/10/17 18:30 Alkaline Phosphatase 98 U/L (45-117) D 07/10/17 18:30 Total Protein 7.0 g/dl (6.4-8.2) D 07/10/17 18:30 Albumin 3.7 g/dl (3.4-5.0) D 07/10/17 18:30 CARDIAC ENZYMES Creatine Kinase 340 IU/L (39-308) H 07/10/17 18:30 Troponin I 0.03 ng/ml (0.00-0.05) D 07/10/17 18:30 ASSESSMENT AND PLAN: Admitted for JAMES possibly prerenal get urine electrolytes if no improvement with IVF NS @125cc hydration. Hold lisinopril. Colitis- unlikely infectious etiology: elevated lactic acid: trend lactic acid, IVF, Zofran, prn, protonix. DM2: A1c, RISS hold oral medications. DVT prophylaxis
[2017-07-11] MEDS ORDERED: ONDANSETRON 4 MG/2 ML VIAL IVPUSH PRN (01:22)
--- NOTE | 2017-07-11 01:22 | HP ---
CHIEF COMPLAINT: Lightheadness, N/V after taking BP meds PCP: unknown HISTORY OF PRESENT ILLNESS: 56 yo man with pmh of HTN, DM2 and UGI bleed (s/p endoscopy and tx), who presents with acute onset of hypotension, lightheadness, N/V and diarrhea after restarting his lisinopril medication this AM. Pt states he takes two medications to control his BP, norvasc and lisinopril (recently increased to 40mg one month ago). Pt states he ran out of medication five days ago and has missed his lisinopril dosing since then. He was in his [place] this AM when he picked up a new rx for lisinopril and took a 40mg dose this AM. He noted after taking his medication, he became progressively lightheaded, diaph[place] the mall. After returning home, pt noted new onset of watery, nonbloody diarrhea and attempted to eat soup in order to rehydrate, however was unable to tolerate PO and experienced multiple bouts of Non bloody, nonbilious clear vomiting. After checking his BP at home, pt noted his BP was 80s-90s systolic, so he came into ED. No recent sick contacts, diet changes, travel. Pt denies GRAJEDA , vision changes, CP, SOB, cough, back pain, dysuria, hematochezia, melena, LE edema or rashes. Pt has never experienced a reaction to his medication likely this before. ER course was notable for: (1)NS 1L x3 (2)CT abdomen/pelvis suggestive of transverse colitis (3)Cr 2.1, WBC 11.6, lactic acid 3.4 Recent Travel: None PAST MEDICAL HISTORY: HTN DM2 Variceal bleeding PAST SURGICAL HISTORY: none Social History: Smoking: Quit in 2005, 1ppd, smoked for 20 years Alcohol: social drinker, 2-3 drinks a week Drugs: Denies Family History: Father with diabetes Allergies No Known Allergies Allergy (Verified 07/10/17 17:08) HOME MEDICATIONS: Home Medications Medication Instructions Recorded Amlodipine Besylate [Norvasc -] 10 mg PO DAILY 05/23/17 Atorvastatin Ca [Lipitor] 10 mg PO DAILY 05/23/17 Glipizide [Glipizide ER] 10 mg PO BID 05/23/17 Metformin HCl [Metformin HCl ER] 1,000 mg PO BID 05/23/17 Lisinopril 40 mg PO DAILY 05/24/17 Sucralfate [Carafate -] 1 gm PO QID #120 tablet 05/27/17 REVIEW OF SYSTEMS CONSTITUTIONAL: chills, diaphoresis, generalized weakness, Absent: fever, malaise, loss of appetite, weight change HEENT: Absent: rhinorrhea, nasal congestion, throat pain, throat swelling, difficulty swallowing, mouth swelling, ear pain, eye pain, visual changes CARDIOVASCULAR: lightheadedness, Absent: chest pain, syncope, palpitations, irregular heart rate, peripheral edema RESPIRATORY: Absent: cough, shortness of breath, dyspnea with exertion, orthopnea, wheezing, stridor, hemoptysis GASTROINTESTINAL: nausea, vomiting, diarrhea, Absent: abdominal pain, abdominal distension, constipation, melena, hematochezia GENITOURINARY: Absent: dysuria, frequency, urgency, hesitancy, hematuria, flank pain, genital pain MUSCULOSKELETAL: Absent: myalgia, arthralgia, joint swelling, back pain, neck pain SKIN: Absent: rash, itching, pallor HEMATOLOGIC/IMMUNOLOGIC: Absent: easy bleeding, easy bruising, lymphadenopathy, frequent infections ENDOCRINE: Absent: unexplained weight gain, unexplained weight loss, heat intolerance, cold intolerance NEUROLOGIC: Absent: headache, focal weakness or paresthesias, dizziness, unsteady gait, seizure, mental status changes, bladder or bowel incontinence PHYSICAL EXAMINATION Vital Signs - 24 hr 07/10/17 07/10/17 17:04 20:35 Temperature 97.9 F Pulse Rate 104 H Respiratory 20 Rate Blood Pressure 108/66 Blood Pressure 88/54 [Left Arm] O2 Sat by Pulse 99 Oximetry (%) GENERAL: Middle aged man, lying in bed, NAD, A&Ox3 HEAD: Normal with no signs of trauma. EYES: Pupils equal, round and reactive to light, extraocular movements intact, sclera anicteric, conjunctiva clear. No lid lag. EARS, NOSE, THROAT: Ears normal, nares patent, oropharynx clear without exudates. Moist mucous membranes. NECK: Normal range of motion, supple without lymphadenopathy, JVD, or masses. LUNGS: Breath sounds equal, clear to auscultation bilaterally. No wheezes, and no crackles. No accessory muscle use. HEART: Regular rate and rhythm, normal S1 and S2 without murmur, rub or gallop. ABDOMEN: Globular, Soft, nontender, not distended, normoactive bowel sounds, no guarding, no rebound, no masses. No hepatomegaly or splenomegaly. MUSCULOSKELETAL: Normal range of motion at all joints. No bony deformities or tenderness. No CVA tenderness. UPPER EXTREMITIES: 2+ pulses, warm, well-perfused. No cyanosis. No clubbing. No peripheral edema. LOWER EXTREMITIES: 2+ pulses, warm, well-perfused. No calf tenderness. No peripheral edema. NEUROLOGICAL: Cranial nerves II-XII intact. Normal speech. Gait not evaluated. PSYCHIATRIC: Cooperative. Good eye contact. Appropriate mood and affect. SKIN: Warm, dry, normal turgor, no rashes or lesions noted, normal capillary refill. Laboratory Results - last 24 hr CBC, BMP 07/10/17 18:30 07/10/17 18:30 07/10/17 07/10/17 07/10/17 18:30 18:30 18:30 WBC 11.6 H D RBC 4.56 D Hgb 13.5 D Hct 40.1 D MCV 87.8 MCH 29.6 MCHC 33.7 RDW 15.0 Plt Count 204 MPV 9.9 D Neutrophils % 82.8 D Lymphocytes % 9.6 D Monocytes % 7.1 Eosinophils % 0.1 D Basophils % 0.4 Sodium 135 L Potassium 3.7 Chloride 95 L Carbon Dioxide 29 Anion Gap 11 BUN 31 H D Creatinine 2.1 H D Creat Clearance w eGFR 32.60 Random Glucose 165 H Lactic Acid Calcium 8.6 Total Bilirubin 0.4 AST 15 ALT 21 D Alkaline Phosphatase 98 D Creatine Kinase 340 H Creatine Kinase Index 0.9 CK-MB (CK-2) 3.070 Troponin I 0.03 D B-Natriuretic Peptide Total Protein 7.0 D Albumin 3.7 D Lipase 146 07/10/17 07/10/17 18:30 18:34 WBC RBC Hgb Hct MCV MCH MCHC RDW Plt Count MPV Neutrophils % Lymphocytes % Monocytes % Eosinophils % Basophils % Sodium Potassium Chloride Carbon Dioxide Anion Gap BUN Creatinine Creat Clearance w eGFR Random Glucose Lactic Acid 3.4 H* Calcium Total Bilirubin AST ALT Alkaline Phosphatase Creatine Kinase Creatine Kinase Index CK-MB (CK-2) Troponin I B-Natriuretic Peptide 13.07 Total Protein Albumin Lipase Urine culture pending CXR 07/11: No pathology noted. CT chest 07/11: read pending CT Abdomen/pelvis 07/11: read pending EKG: Rate 94, NAD< QTC 447, noted R wave in II, AVF ASSESSMENT/PLAN: 56 yo man with pmh of HTN, DM2 and UGI bleed (s/p endoscopy and tx), who presents with acute onset of hypotension, lightheadness, N/V and diarrhea after restarting his lisinopril medication this AM. CT ab/pelvis notable for edematous traverse colon, suggesting colitis as likely etiology of diarrhea. #Suspected transverse colitis - WBC 11.6; CT abdomen noted for edematous traverse colon; Possibly secondary to bowel edema from ACEi vs. transient hypotensive ischemia vs. gastroparesis vs.possible infectious etiology, though unlikely; lipase normal - IVFs - hold HTN meds - Zofran PRN - Protonix IV - NPO for now - Trend WBC, fever curve; likely non-infectious - Consider GI consult if symptoms do not improve - d/c ACEi - Trend lactate - Monitor lytes; replete as needed #JAMES - likely prerenal, secondary to volume loss from diarrhea, vomiting; Baseline Cr 0.8; 2.1 this admission - IVFs - Avoid nephrotoxic agents - Trend Cr - consider renal U/S #HTN - Hold HTN meds in setting of hypotension for now #DM2 - BGM q4h - ISS - Hold oral agents FEN NS 75cc/hr Daily lytes Diabetic diet for AM PPX HSQ Plan discussed with attending, Dr. Laci Tijerina, PGY1 Visit type - Emergency Visit Emergency Visit: Yes ED Registration Date: 07/11/17 Care time: The patient presented to the Emergency Department on the above date and was hospitalized for further evaluation of their emergent condition. - New Patient This patient is new to me today: Yes Date on this admission: 07/11/17 - Critical Care Critical Care patient: No Hospitalist Screening - Colonoscopy Questionnaire Colonoscopy Questionnaire: Colonoscopy Questionnaire - Patient: 50 - 75 years old and never had a screening colonoscopy: Unknown History of colon or rectal polyps, or CA: Unknown History of IBD, Crohn's disease or UC: Unknown History of abdominal radiation therapy as a child: Unknown - Relative: 1 with colon or rectal CA, or polyps at age 60 or younger: Unknown Colon or rectal CA diagnosed at age 45 or younger: Unknown Multiple relatives with colon or rectal CA: Unknown - Outcome: Screening Result: Negative Screen
[2017-07-11] MEDS ORDERED: SODIUM CHLORIDE 1,000 ML IV SCH ×2 (01:30→07:30)
[2017-07-11 03:37] LABS: URINE APPEARANCE CLEAR; URINE BILIRUBIN NEGATIVE (<2.0 mg/dL); URINE COLOR LTYELLOW; URINE GLUCOSE (UA) 1+ (NEGATIVE); URINE KETONE NEGATIVE (NEGATIVE); URINE LEUK ESTERASE NEGATIVE (NEGATIVE); URINE NITRITE NEGATIVE (NEGATIVE); URINE UROBILINOGEN NEGATIVE mg/dL (0.2-1.0)
[2017-07-11 03:41] LABS: URINE PROTEIN 1+ (NEGATIVE)
[2017-07-11 03:43] LABS: EPI CELLS RARE /HPF (FEW); URINE HYALINE CAST 1 /lpf; URINE MUCUS RARE
[2017-07-11] MEDS ORDERED: ACETAMINOPHEN 325 MG TABLET (FP) PO PRN (06:50)
[2017-07-11] MEDS ORDERED: ACETAMINOPHEN 325 MG TABLET (FP) ONE (06:52)
[2017-07-11] MEDS: HEPARIN NA (PORCINE) 5,000 UNITS/ML 1ML VIAL SQ SCH ×2 (06:54→14:00)
[2017-07-11] MEDS: INSULIN SLIDING SCALE (NOVOLOG) 1 VIAL SQ SCH ×2 (06:58→12:02)
[2017-07-11 07:30] VITALS: BMI 21.9
[2017-07-11 08:31] LABS: BASO % 0.4 % (0-2.0); EOS % 0.4 % (0-4.5); HEMATOCRIT 35.4 % (35.4-49); HEMOGLOBIN 11.8 GM/dL (11.7-16.9); LYMPH % 21.6 % (8-40); MCH 29.4 pg (25.7-33.7); MCHC 33.4 g/dl (32.0-35.9); MONO % 8.1 % (3.8-10.2); NEUT % 69.5 % (42.8-82.8); PLATELET COUNT 171 K/MM3 (134-434); RBC 4.02 M/mm3 (4.00-5.60); WHITE BLOOD COUNT 6.6 K/mm3 (4.0-10.0)
[2017-07-11 08:46] LABS: ANION GAP 4 (8-16); BLOOD UREA NITROGEN 24 mg/dL (7-18); CALCIUM 7.7 mg/dL (8.5-10.1); CHLORIDE 103 mmol/L (98-107); CO2 30 mmol/L (21-32); GLUCOSE,RANDOM 104 mg/dL (74-106); MAGNESIUM 1.7 mg/dL (1.8-2.4); PHOSPHOROUS 3.6 mg/dL (2.5-4.9); POTASSIUM 3.5 mmol/L (3.5-5.1); SGOT/AST 14 U/L (15-37); SGPT/ALT 17 U/L (12-78); SODIUM 137 mmol/L (136-145)
[2017-07-11 08:48] VITALS: BP 123/72; PULSE 87; TEMP 98
[2017-07-11 08:48] LABS: ALK PHOS 83 U/L (45-117); BILIRUBIN,TOTAL 0.5 mg/dL (0.2-1.0); TOT PROT 5.9 g/dl (6.4-8.2)
[2017-07-11] MEDS ORDERED: ATORVASTATIN CA 10 MG TABLET (FP) PO SCH (10:00)
[2017-07-11] MEDS ORDERED: amLODIPine BESYLATE 10 MG TABLET (FP) PO SCH (10:00)
[2017-07-11] MEDS ORDERED: PANTOPRAZOLE SODIUM 40 MG VIAL IVPUSH SCH (10:00)
[2017-07-11] MEDS ORDERED: MAGNESIUM SULF 50% (8.12 MEQ/2 ML-1 GM VIAL) IVPB ONE (10:14)
--- NOTE | 2017-07-11 10:30 | PN ---
Teaching Attending Note Name of Resident: Xin Fischer SUBJECTIVE: patient seen and examined, No further nausea, vomiting or diarrhea. ABout to eat breakfast, will follow up. OBJECTIVE: Vital Signs Period Temp Pulse Resp BP Sys/Rivera Pulse Ox Last 24 Hr 97.9 F-98.1 F 86-104 18-20 88-141/54-78 94-99 Intake & Output 07/08/17 07/09/17 07/10/17 07/11/17 23:59 23:59 23:59 23:59 Weight 184 lb 161 lb 12.8 oz General: sitting in bed in no acute distress Chest: CTAB, no rales or wheezing Abdomen: soft, NT throughout, ND, positive bowel sounds, no suprapubic or CVA tenderness extremities: no edema Home Medication List Medication Instructions Recorded Confirmed Type Amlodipine Besylate [Norvasc -] 10 mg PO DAILY 05/23/17 07/10/17 History Atorvastatin Ca [Lipitor] 10 mg PO DAILY 05/23/17 07/10/17 History Glipizide [Glipizide ER] 10 mg PO BID 05/23/17 07/10/17 History Metformin HCl [Metformin HCl ER] 1,000 mg PO BID 05/23/17 07/10/17 History Lisinopril 40 mg PO DAILY 05/24/17 07/10/17 History Active Medications Generic Name Dose Route Start Last Admin Trade Name Freq PRN Reason Stop Dose Admin Acetaminophen 650 mg 07/11/17 06:50 07/11/17 06:55 Tylenol - PO 650 mg Q6H PRN Administration PAIN LEVEL 1-5 Amlodipine Besylate 10 mg 07/11/17 10:00 Norvasc - PO DAILY ROX Atorvastatin Calcium 10 mg 07/11/17 10:00 Lipitor - PO DAILY [facility] Heparin Sodium (Porcine) 5,000 unit 07/11/17 06:00 07/11/17 06:54 Heparin - SQ 5,000 unit TID [facility] Administration Sodium Chloride 1,000 mls @ 100 mls/hr 07/11/17 07:30 Normal Saline - IV ASDIR [facility] Insulin Aspart 1 vial 07/11/17 07:00 07/11/17 06:58 Novolog Vial Sliding Scale - SQ Not Given ACHS [facility] Protocol Magnesium Sulfate 2 gm 07/11/17 10:14 Magnesium Sulfate IVPB 07/11/17 10:15 ONCE ONE Ondansetron HCl 4 mg 07/11/17 01:22 Zofran Injection IVPUSH Q6H PRN NAUSEA Pantoprazole Sodium 40 mg 07/11/17 10:00 Protonix Iv IVPUSH DAILY ROX Sucralfate 1 gm 07/11/17 10:00 Carafate - PO QID [facility] Laboratory Results - last 24 hr 07/10/17 07/10/17 07/10/17 18:30 18:30 18:30 WBC 11.6 H D RBC 4.56 D Hgb 13.5 D Hct 40.1 D MCV 87.8 MCH 29.6 MCHC 33.7 RDW 15.0 Plt Count 204 MPV 9.9 D Neutrophils % 82.8 D Lymphocytes % 9.6 D Monocytes % 7.1 Eosinophils % 0.1 D Basophils % 0.4 Sodium 135 L Potassium 3.7 Chloride 95 L Carbon Dioxide 29 Anion Gap 11 BUN 31 H D Creatinine 2.1 H D Creat Clearance w eGFR 32.60 POC Glucometer Random Glucose 165 H Lactic Acid Calcium 8.6 Phosphorus Magnesium Total Bilirubin 0.4 AST 15 ALT 21 D Alkaline Phosphatase 98 D Creatine Kinase 340 H Creatine Kinase Index 0.9 CK-MB (CK-2) 3.070 Troponin I 0.03 D B-Natriuretic Peptide Total Protein 7.0 D Albumin 3.7 D Lipase 146 Urine Color Urine Appearance Urine pH Ur Specific [place] Urine Protein Urine Glucose (UA) Urine Ketones Urine Blood Urine Nitrite Urine Bilirubin Urine Urobilinogen Ur Leukocyte Esterase Urine WBC (Auto) Urine RBC (Auto) Ur Epithelial Cells Hyaline Casts Urine Mucus 07/10/17 07/10/17 07/11/17 18:30 18:34 01:37 WBC RBC Hgb Hct MCV MCH MCHC RDW Plt Count MPV Neutrophils % Lymphocytes % Monocytes % Eosinophils % Basophils % Sodium Potassium Chloride Carbon Dioxide Anion Gap BUN Creatinine Creat Clearance w eGFR POC Glucometer Random Glucose Lactic Acid 3.4 H* 2.2 H* Calcium Phosphorus Magnesium Total Bilirubin AST ALT Alkaline Phosphatase Creatine Kinase Creatine Kinase Index CK-MB (CK-2) Troponin I B-Natriuretic Peptide 13.07 Total Protein Albumin Lipase Urine Color Urine Appearance Urine pH Ur Specific [place] Urine Protein Urine Glucose (UA) Urine Ketones Urine Blood Urine Nitrite Urine Bilirubin Urine Urobilinogen Ur Leukocyte Esterase Urine WBC (Auto) Urine RBC (Auto) Ur Epithelial Cells Hyaline Casts Urine Mucus 07/11/17 07/11/17 07/11/17 03:28 05:10 06:43 WBC RBC Hgb Hct MCV MCH MCHC RDW Plt Count MPV Neutrophils % Lymphocytes % Monocytes % Eosinophils % Basophils % Sodium Potassium Chloride Carbon Dioxide Anion Gap BUN Creatinine Creat Clearance w eGFR POC Glucometer 110 Random Glucose Lactic Acid 1.4 Calcium Phosphorus Magnesium Total Bilirubin AST ALT Alkaline Phosphatase Creatine Kinase Creatine Kinase Index CK-MB (CK-2) Troponin I B-Natriuretic Peptide Total Protein Albumin Lipase Urine Color Ltyellow Urine Appearance Clear Urine pH 5.0 Ur Specific [place] 1.014 Urine Protein 1+ H Urine Glucose (UA) 1+ H Urine Ketones Negative Urine Blood Negative Urine Nitrite Negative Urine Bilirubin Negative Urine Urobilinogen Negative Ur Leukocyte Esterase Negative Urine WBC (Auto) 2 Urine RBC (Auto) <1 Ur Epithelial Cells Rare Hyaline Casts 1 Urine Mucus Rare 07/11/17 07/11/17 07:55 07:55 WBC 6.6 D RBC 4.02 Hgb 11.8 D Hct 35.4 MCV 88.0 MCH 29.4 MCHC 33.4 RDW 15.0 Plt Count 171 MPV 9.0 Neutrophils % 69.5 Lymphocytes % 21.6 D Monocytes % 8.1 Eosinophils % 0.4 D Basophils % 0.4 Sodium 137 Potassium 3.5 Chloride 103 Carbon Dioxide 30 Anion Gap 4 L BUN 24 H D Creatinine 1.0 D Creat Clearance w eGFR > 60 POC Glucometer Random Glucose 104 D Lactic Acid Calcium 7.7 L Phosphorus 3.6 Magnesium 1.7 L Total Bilirubin 0.5 D AST 14 L ALT 17 Alkaline Phosphatase 83 Creatine Kinase Creatine Kinase Index CK-MB (CK-2) Troponin I B-Natriuretic Peptide Total Protein 5.9 L Albumin 3.0 L Lipase Urine Color Urine Appearance Urine pH Ur Specific [place] Urine Protein Urine Glucose (UA) Urine Ketones Urine Blood Urine Nitrite Urine Bilirubin Urine Urobilinogen Ur Leukocyte Esterase Urine WBC (Auto) Urine RBC (Auto) Ur Epithelial Cells Hyaline Casts Urine Mucus ASSESSMENT AND PLAN: 56 yom with IDDM, admitted to [facility] in 04/2017 with bleeding gastric ulcer/Anemia , HTN, comes with n/v/d, lactic acidosis, hypotension and JAMES in the setting of recently increased Lisinopril dosing. -Acute transverse/ascending colitis, ?Infectious vs ACEI related bowel wall edema vs self limited viral gastroenteritis -Severe lactic acidosis, from hypovolumia +/- metformin -Hypotension, likely from severe hypovolumia, less likely sepsis related -JAMES, likely From ACEi/hypovolumia +/- urinary retention -IDDM -HTN -PUD Plan: Levaquin/flagyl short course. Stool studies if available. GI input if fails to improve or fails to tolerate diet. HOld ACEi for now. Increase IVF to 100 ml/hr. Bladder scan with 300 ml urine per nursing, will reattempt. Kidney/bladder US. Urine lytes Resume amlodipine as BP tolerates. d/c metformin for now. Hold home lantus and glipizide. ISS and diabetic diet. Patient reports d/cing protonix outpatient as had leg edema, only on sucralfate. Will try ranitidine. DIspo planning pending clinical improvement, likely in 24 hours if GI symptoms resolved, tolerating diet well and on concerns for urinary retention. Plan discussed with patient in detail, all questions answered.
[2017-07-11] MEDS ORDERED: POTASSIUM CHLORIDE TABS 20 MEQ TABLET.ER (FP) PO ONE (10:33)
[2017-07-11] MEDS: SUCRALFATE 1 GM TABLET (FP) PO SCH ×2 (11:41→14:01)
[2017-07-11 12:03] LABS: URINE CREATININE 36.5 mg/dL (20-370)
[2017-07-11] MEDS ORDERED: metroNIDAZOLE 250 MG TABLET PO SCH (14:00)
--- NOTE | 2017-07-11 15:03 | DS ---
Physical Exam: SUBJECTIVE: Patient seen and examined, no nausea, vomiting, diarrhea, or abdominal pain. tolerating diet well. asymptomatic, urinating ok. eager to go home. OBJECTIVE: Vital Signs Period Temp Pulse Resp BP Sys/Rivera Pulse Ox Last 24 Hr 97.9 F-98.1 F 86-104 18-20 88-141/54-78 94-99 PHYSICAL EXAM General: sitting in bed in no acute distress Chest: CTAB, no rales or wheezing Abdomen: soft, NT throughout, ND, positive bowel sounds, no suprapubic or CVA tenderness extremities: no edema CVS; S1S2 regular LABS Laboratory Results - last 24 hr 07/10/17 07/10/17 07/10/17 18:30 18:30 18:30 WBC 11.6 H D RBC 4.56 D Hgb 13.5 D Hct 40.1 D MCV 87.8 MCH 29.6 MCHC 33.7 RDW 15.0 Plt Count 204 MPV 9.9 D Neutrophils % 82.8 D Lymphocytes % 9.6 D Monocytes % 7.1 Eosinophils % 0.1 D Basophils % 0.4 Sodium 135 L Potassium 3.7 Chloride 95 L Carbon Dioxide 29 Anion Gap 11 BUN 31 H D Creatinine 2.1 H D Creat Clearance w eGFR 32.60 POC Glucometer Random Glucose 165 H Lactic Acid Calcium 8.6 Phosphorus Magnesium Total Bilirubin 0.4 AST 15 ALT 21 D Alkaline Phosphatase 98 D Creatine Kinase 340 H Creatine Kinase Index 0.9 CK-MB (CK-2) 3.070 Troponin I 0.03 D B-Natriuretic Peptide Total Protein 7.0 D Albumin 3.7 D Lipase 146 Urine Color Urine Appearance Urine pH Ur Specific Prosper Urine Protein Urine Glucose (UA) Urine Ketones Urine Blood Urine Nitrite Urine Bilirubin Urine Urobilinogen Ur Leukocyte Esterase Urine WBC (Auto) Urine RBC (Auto) Ur Epithelial Cells Hyaline Casts Urine Mucus Urine Osmolality Ur Random Sodium Ur Random Potassium Ur Random Chloride Urine Creatinine 07/10/17 07/10/17 07/11/17 18:30 18:34 01:37 WBC RBC Hgb Hct MCV MCH MCHC RDW Plt Count MPV Neutrophils % Lymphocytes % Monocytes % Eosinophils % Basophils % Sodium Potassium Chloride Carbon Dioxide Anion Gap BUN Creatinine Creat Clearance w eGFR POC Glucometer Random Glucose Lactic Acid 3.4 H* 2.2 H* Calcium Phosphorus Magnesium Total Bilirubin AST ALT Alkaline Phosphatase Creatine Kinase Creatine Kinase Index CK-MB (CK-2) Troponin I B-Natriuretic Peptide 13.07 Total Protein Albumin Lipase Urine Color Urine Appearance Urine pH Ur Specific Prosper Urine Protein Urine Glucose (UA) Urine Ketones Urine Blood Urine Nitrite Urine Bilirubin Urine Urobilinogen Ur Leukocyte Esterase Urine WBC (Auto) Urine RBC (Auto) Ur Epithelial Cells Hyaline Casts Urine Mucus Urine Osmolality Ur Random Sodium Ur Random Potassium Ur Random Chloride Urine Creatinine 07/11/17 07/11/17 07/11/17 03:28 05:10 06:43 WBC RBC Hgb Hct MCV MCH MCHC RDW Plt Count MPV Neutrophils % Lymphocytes % Monocytes % Eosinophils % Basophils % Sodium Potassium Chloride Carbon Dioxide Anion Gap BUN Creatinine Creat Clearance w eGFR POC Glucometer 110 Random Glucose Lactic Acid 1.4 Calcium Phosphorus Magnesium Total Bilirubin AST ALT Alkaline Phosphatase Creatine Kinase Creatine Kinase Index CK-MB (CK-2) Troponin I B-Natriuretic Peptide Total Protein Albumin Lipase Urine Color Ltyellow Urine Appearance Clear Urine pH 5.0 Ur Specific Prosper 1.014 Urine Protein 1+ H Urine Glucose (UA) 1+ H Urine Ketones Negative Urine Blood Negative Urine Nitrite Negative Urine Bilirubin Negative Urine Urobilinogen Negative Ur Leukocyte Esterase Negative Urine WBC (Auto) 2 Urine RBC (Auto) <1 Ur Epithelial Cells Rare Hyaline Casts 1 Urine Mucus Rare Urine Osmolality Ur Random Sodium Ur Random Potassium Ur Random Chloride Urine Creatinine 07/11/17 07/11/17 07/11/17 07:55 07:55 10:45 WBC 6.6 D RBC 4.02 Hgb 11.8 D Hct 35.4 MCV 88.0 MCH 29.4 MCHC 33.4 RDW 15.0 Plt Count 171 MPV 9.0 Neutrophils % 69.5 Lymphocytes % 21.6 D Monocytes % 8.1 Eosinophils % 0.4 D Basophils % 0.4 Sodium 137 Potassium 3.5 Chloride 103 Carbon Dioxide 30 Anion Gap 4 L BUN 24 H D Creatinine 1.0 D Creat Clearance w eGFR > 60 POC Glucometer Random Glucose 104 D Lactic Acid Calcium 7.7 L Phosphorus 3.6 Magnesium 1.7 L Total Bilirubin 0.5 D AST 14 L ALT 17 Alkaline Phosphatase 83 Creatine Kinase Creatine Kinase Index CK-MB (CK-2) Troponin I 0.03 B-Natriuretic Peptide Total Protein 5.9 L Albumin 3.0 L Lipase Urine Color Urine Appearance Urine pH Ur Specific Prosper Urine Protein Urine Glucose (UA) Urine Ketones Urine Blood Urine Nitrite Urine Bilirubin Urine Urobilinogen Ur Leukocyte Esterase Urine WBC (Auto) Urine RBC (Auto) Ur Epithelial Cells Hyaline Casts Urine Mucus Urine Osmolality 335 Ur Random Sodium Ur Random Potassium Ur Random Chloride Urine Creatinine 07/11/17 07/11/17 07/11/17 10:45 10:45 12:01 WBC RBC Hgb Hct MCV MCH MCHC RDW Plt Count MPV Neutrophils % Lymphocytes % Monocytes % Eosinophils % Basophils % Sodium Potassium Chloride Carbon Dioxide Anion Gap BUN Creatinine Creat Clearance w eGFR POC Glucometer 181 Random Glucose Lactic Acid Calcium Phosphorus Magnesium Total Bilirubin AST ALT Alkaline Phosphatase Creatine Kinase Creatine Kinase Index CK-MB (CK-2) Troponin I Cancelled B-Natriuretic Peptide Total Protein Albumin Lipase Urine Color Urine Appearance Urine pH Ur Specific Prosper Urine Protein Urine Glucose (UA) Urine Ketones Urine Blood Urine Nitrite Urine Bilirubin Urine Urobilinogen Ur Leukocyte Esterase Urine WBC (Auto) Urine RBC (Auto) Ur Epithelial Cells Hyaline Casts Urine Mucus Urine Osmolality Ur Random Sodium 88 Ur Random Potassium 9.4 Ur Random Chloride 90 Urine Creatinine 36.5 Bladder/renal US = unremarkable except post voidal urine 57 cc HOSPITAL COURSE: Date of Admission:07/11/17 Date of Discharge: 07/11/17 Minutes to complete discharge: 40 Discharge Summary Reason For Visit: DYSPNEA ON EXERTION Current Active Problems Hypotension (Acute) Hospital Course: His lactic acidosis resolved. His BP was stable on amlodipine. His CT Chest/A/p showed ascending/transverse colitis. He was placed on levaquin/flagyl. His abdominal symptoms fully resolved and he was tolerating diet well prior to his discharge. His renal function normalized. He had kidney/bladder ultrasound which were unremarkable except for post voidal residual 55 cc, patient was asymptomatic with normalized renal function and advised follow up with his PCP and urology if concerns. His metformin has been discontinued. His glyburide is held on discharge and he is advised to resume lantus 20 units bedtime and titrate up according to his blood sugars and oral intake. He had non specific T wave inversions on his EKG, with no chest pain or ACS concerns. His troponins were negative and his is completely asymptomatic currently. He is advised outpatient stress test. His magnesium was repleted. Condition: Stable - Instructions Diet, Activity, Other Instructions: You were admitted with nausea, vomiting, diarrhea, low BP and abnormal blood tests (lactic acid). You were also found with colitis (inflammation of your ascending and tranverse colon) which could be infectious or bowel swelling related to lisinopril. PLEASE ADD MEDICATION LISINOPRIL TO YOUR LIST OF ALLERGIES. You are started on antibiotics, continue as follows: Levaquin 500 mg daily for 4 days starting tomorrow Flagyl 500 mg every 8 hours starting this evening, last dose 07/15 You are advised to follow up with your software configuration engineer Dr. Galindo in 1-2 weeks to discuss colonoscopy and further testing. Also the following changes have been made to your medications: STOP YOUR LISINOPRIL AND METFORMIN Also stop your glyburide for now till you are seen by your doctor. Advise to take lantus 20 units at night today, monitor your blood sugars before meals and at bedtime closely till your next doctor visit. Anticipate that as your eating improves over the next few days, your lantus and glyburide will likely be able to be resumed, but that will be according to your blood sugars. Check your blood sugars before meals and at bedtime and notify your doctor if persistently > 200 or any reading >350. If your blood sugars as less than 75 and unable to eat well, please do not take your insulin and call your doctor or come to ED. You have appointment with your doctor on 07/15, Please have blood work below on next visit: BMP (Basic metabolic panel) to monitor your kidneys. Also recommend daily home BP monitoring till next doctor visit and notify your doctor if SBP (upper BP), persistently >135 or < 100 or any dizziness noted. Drink plenty of fluids to ensure adequate hydration Discuss with your doctor for outpatient cardiac stress testing Please have your doctor refer to a urologist to ensure that you are empyting your bladder adequately and ensure to monitor your kidney function with your doctor. Advise rest and light activity till your next doctor visit and resume activity as tolerated then. Call 911 or come to ED if any new fevers, chills, belly pain, nauseas, vomitting , diarrhea, inability to eat, dizziness, inability to urinate or any new concerns. Referrals: ON STAFF,NOT [Primary Care Provider] - Disposition: HOME - Home Medications Comprehensive Discharge Medication List: Ambulatory Orders Amlodipine Besylate [Norvasc -] 10 mg PO DAILY 05/23/17 Atorvastatin Ca [Lipitor] 10 mg PO DAILY 05/23/17 Sucralfate [Carafate -] 1 gm PO QID #120 tablet 05/27/17 Insulin Glargine,Hum.rec.anlog [Lantus] 20 unit SQ HS #1 vial 07/11/17 levoFLOXacin [Levaquin -] 500 mg PO DAILY #4 tablet 07/11/17 metroNIDAZOLE [Flagyl -] 500 mg PO Q8H #14 tablet 07/11/17 This patient is new to me today: Yes Date on this admission: 07/11/17 Emergency Visit: No Critical Care patient: No - Discharge Referral Referred to [facility] Med P.C.: No
[2017-07-11] MEDS ORDERED: RANITIDINE HCL 150 MG TABLET (FP) PO SCH (22:00)
--- NOTE | 2017-07-12 12:30 | EKG ---
Test Reason : Blood Pressure : / mmHG Vent. Rate : 094 BPM Atrial Rate : 094 BPM P-R Int : 136 ms QRS Dur : 096 ms QT Int : 358 ms P-R-T Axes : 057 042 068 degrees QTc Int : 447 ms NORMAL SINUS RHYTHM NONSPECIFIC T WAVE ABNORMALITY ABNORMAL ECG WHEN COMPARED WITH ECG OF 10-JUL-2017 18:38, CRITERIA FOR ANTERIOR INFARCT ARE NO LONGER PRESENT CRITERIA FOR ANTEROLATERAL INFARCT ARE NO LONGER PRESENT Confirmed by BLANCA NAVA MD ([id number]) on 07/12/2017 12:30:03 PM Referred By: Confirmed By:BLANCA NAVA MD
--- NOTE | 2017-07-12 12:30 | EKG ---
Test Reason : Blood Pressure : / mmHG Vent. Rate : 094 BPM Atrial Rate : 094 BPM P-R Int : 142 ms QRS Dur : 086 ms QT Int : 364 ms P-R-T Axes : 054 039 066 degrees QTc Int : 455 ms NORMAL SINUS RHYTHM ANTEROLATERAL INFARCT , AGE UNDETERMINED ABNORMAL ECG WHEN COMPARED WITH ECG OF 10-JUL-2017 18:11, ANTERIOR INFARCT IS NOW PRESENT ANTEROLATERAL INFARCT IS NOW PRESENT Confirmed by BRANDY KNUTSON, BLANCA ([id number]) on 07/12/2017 12:30:37 PM Referred By: Confirmed By:BLANCA NAVA MD
--- NOTE | 2017-07-12 12:31 | EKG ---
Test Reason : Blood Pressure : / mmHG Vent. Rate : 095 BPM Atrial Rate : 095 BPM P-R Int : 150 ms QRS Dur : 090 ms QT Int : 360 ms P-R-T Axes : 056 041 070 degrees QTc Int : 452 ms NORMAL SINUS RHYTHM POSSIBLE LEFT ATRIAL ENLARGEMENT NONSPECIFIC ST AND T WAVE ABNORMALITY ABNORMAL ECG WHEN COMPARED WITH ECG OF 24-MAY-2017 07:00, NONSPECIFIC T WAVE ABNORMALITY NO LONGER EVIDENT IN INFERIOR LEADS Confirmed by BLANCA NAVA MD ([id number]) on 07/12/2017 12:30:48 PM Referred By: Confirmed By:BLANCA NAVA MD
== END 2017-07-11 16:00 | disposition home or self-care (01) | DRG 460 ==
LOC: JER 16:56 → JERBED 07-11 04:47 → J4S 07-11 05:48
PROVIDERS: ADMIT Internal Medicine; ATTEND Hospitalist
DX: N17.9 Acute kidney failure, unspecified (principal); E87.2 Acidosis; K52.9 Noninfective gastroenteritis and colitis, unspecified; E83.42 Hypomagnesemia; E86.1 Hypovolemia; R00.0 Tachycardia, unspecified; Z91.14 Patient's other noncompliance with medication regimen; I10 Essential (primary) hypertension; E11.9 Type 2 diabetes mellitus without complications; Z79.84 Long term (current) use of oral hypoglycemic drugs; Z79.4 Long term (current) use of insulin; E78.5 Hyperlipidemia, unspecified; Z87.11 Personal history of peptic ulcer disease; K57.30 Diverticulosis of large intestine without perforation or abscess without bleeding
CPT/HCPCS: 36415; 71045-TC-FY; 71250-TC; 74176-TC; 76775-TC; 76856-TC; 80053; 81003; 81015; 82436; 82550; 82553; 82570; 82962; 83605; 83690; 83735; 83880; 83935; 84100; 84133; 84300; 84484; 85025; 87086; 87205; 93005; 93010; 99284-25; J1644; J7030

== ENCOUNTER 2022-06-29 16:30 | Inpatient (IN) | payer OTHER ==
[2022-06-29 16:43] VITALS: BMI 23.6
[2022-06-29] MEDS ORDERED: VANCOMYCIN 1 GM in D5W (PRE-DOCKED) 1,000 MG/250 ML IVPB ONE (17:33)
[2022-06-29] MEDS ORDERED: VANCOMYCIN/WATER FOR INJ (PEG) 1,000 MG/200 ML BAG IVPB ONE (18:10)
[2022-06-29 19:28] LABS: BASO % 0.4 % (0-2.0); EOS % 0.9 % (0-4.5); HEMATOCRIT 45.6 % (35.4-49); HEMOGLOBIN 15.2 GM/dL (11.7-16.9); LYMPH % 32.4 % (8-40); MCH 29.9 pg (25.7-33.7); MCHC 33.4 g/dl (32.0-35.9); MEAN CELL VOLUME 89.5 fl (80-96); MEAN PLT VOLUME 9.8 fl (7.5-11.1); MONO % 8.8 % (3.8-10.2); NEUT % 57.5 % (42.8-82.8); PLATELET COUNT 200 10^3/uL (134-434); RBC 5.09 M/mm3 (4.00-5.60); RDW 14.4 % (11.9-15.9); WHITE BLOOD COUNT 6.2 K/mm3 (4.0-10.0)
[2022-06-29 19:55] LABS: CHLORIDE 102 mmol/L (98-107); SODIUM 138 mmol/L (136-145)
[2022-06-29 19:57] LABS: ANION GAP 6 MMOL/L (8-16); BLOOD UREA NITROGEN 19.1 mg/dL (7-18); CALCIUM 9.4 mg/dL (8.5-10.1); CO2 31 mmol/L (21-32); GLUCOSE,RANDOM 120 mg/dL (74-106)
[2022-06-29 19:58] LABS: ALBUMIN 3.4 g/dl (3.4-5.0)
[2022-06-29 20:00] LABS: SGPT/ALT 25 U/L (13-61)
[2022-06-29 20:01] LABS: SGOT/AST 20 U/L (15-37)
[2022-06-29 20:02] LABS: BILIRUBIN,TOTAL 0.5 mg/dL (0.2-1)
[2022-06-29 20:03] LABS: ALK PHOS 99 U/L (45-117)
[2022-06-29] MEDS: INSULIN SLIDING SCALE (NOVOLOG) 1 VIAL SQ SCH (22:48)
[2022-06-29] MEDS ORDERED: PIPERACILLIN/TAZOB 3.375 GM 3.375 GM in DEXTROSE 5%-WATER - 50 ML IVPB SCH (23:00)
[2022-06-29] MEDS ORDERED: FAMOTIDINE 20 MG TABLET PO PRN (23:08)
[2022-06-30] MEDS: INSULIN SLIDING SCALE (NOVOLOG) 1 VIAL SQ SCH ×4 (06:29→21:26)
[2022-06-30 09:42] LABS: BASO % 0.4 % (0-2.0); EOS % 1.6 % (0-4.5); HEMATOCRIT 44.5 % (35.4-49); HEMOGLOBIN 15.2 GM/dL (11.7-16.9); LYMPH % 31.6 % (8-40); MCH 30.2 pg (25.7-33.7); MCHC 34.1 g/dl (32.0-35.9); MEAN CELL VOLUME 88.7 fl (80-96); MEAN PLT VOLUME 9.4 fl (7.5-11.1); NEUT % 56.4 % (42.8-82.8); PLATELET COUNT 177 10^3/uL (134-434); RBC 5.01 M/mm3 (4.00-5.60); RDW 14.5 % (11.9-15.9); WHITE BLOOD COUNT 4.7 K/mm3 (4.0-10.0)
[2022-06-30] MEDS: PIPERACILLIN/TAZOB 3.375 GM 3.375 GM in DEXTROSE 5%-WATER - 50 ML IVPB SCH ×2 (09:56→09:57)
[2022-06-30] MEDS: INSULIN (LEVEMIR) 100 UNITS/ML UNITS SQ SCH ×2 (09:57→21:26)
[2022-06-30 10:00] LABS: CALCIUM 9.2 mg/dL (8.5-10.1)
[2022-06-30 10:01] LABS: ALBUMIN 3.3 g/dl (3.4-5.0); BLOOD UREA NITROGEN 18.6 mg/dL (7-18)
[2022-06-30 10:04] LABS: CHOLESTEROL 149 mg/dL (50-200); CREATININE 0.9 mg/dL (0.55-1.3); PHOSPHOROUS 3.3 mg/dL (2.5-4.9)
[2022-06-30 10:05] LABS: BILIRUBIN,TOTAL 0.7 mg/dL (0.2-1); LDL CHOLESTEROL (ONLY SJRH) 99 mg/dL (5-100); TOT PROT 6.8 g/dl (6.4-8.2)
[2022-06-30 10:08] LABS: HDL CHOLESTEROL 38 mg/dL (40-60)
[2022-06-30] MEDS: METOPROLOL TARTRATE 25 MG TABLET (FP) PO SCH ×2 (10:14→21:26)
[2022-06-30] MEDS: CHLORTHALIDONE 25 MG TABLET PO SCH (10:14)
[2022-06-30] MEDS: KETOROLAC TROMETHAMINE 0.5% EYE DROP 1 DROP DROPS OP SCH (10:14)
[2022-06-30] MEDS: ENOXAPARIN NA (PORCINE) 40 MG/0.4 ML DISP.SYRIN SQ SCH (10:15)
[2022-06-30] MEDS ORDERED: INSULIN (LEVEMIR) 100 UNITS/ML UNITS SQ ONE (10:53)
[2022-06-30] MEDS: CEFTRIAXONE 1 GM in DEXTROSE 5%-WATER - 50 ML IVPB SCH (11:46)
[2022-06-30] MEDS: ATORVASTATIN CA 10 MG TABLET (FP) PO SCH (21:26)
[2022-07-01] MEDS: INSULIN SLIDING SCALE (NOVOLOG) 1 VIAL SQ SCH ×4 (06:53→21:51)
[2022-07-01] MEDS: KETOROLAC TROMETHAMINE 0.5% EYE DROP 1 DROP DROPS OP SCH (09:23)
[2022-07-01 09:28] LABS: BASO % 0.5 % (0-2.0); EOS % 1.7 % (0-4.5); HEMATOCRIT 43.8 % (35.4-49); HEMOGLOBIN 14.9 GM/dL (11.7-16.9); LYMPH % 29.7 % (8-40); MCH 30.3 pg (25.7-33.7); MEAN CELL VOLUME 89.1 fl (80-96); MONO % 9.8 % (3.8-10.2); NEUT % 58.3 % (42.8-82.8); PLATELET COUNT 183 10^3/uL (134-434); RBC 4.92 M/mm3 (4.00-5.60); RDW 14.3 % (11.9-15.9); WHITE BLOOD COUNT 4.9 K/mm3 (4.0-10.0)
[2022-07-01] MEDS: CHLORTHALIDONE 25 MG TABLET PO SCH (09:28)
[2022-07-01] MEDS: METOPROLOL TARTRATE 25 MG TABLET (FP) PO SCH ×2 (09:28→21:50)
[2022-07-01] MEDS: ENOXAPARIN NA (PORCINE) 40 MG/0.4 ML DISP.SYRIN SQ SCH (09:30)
[2022-07-01] MEDS: INSULIN (LEVEMIR) 100 UNITS/ML UNITS SQ SCH ×2 (09:31→21:51)
[2022-07-01] MEDS: CEFTRIAXONE 1 GM in DEXTROSE 5%-WATER - 50 ML IVPB SCH (09:35)
[2022-07-01 09:42] LABS: BLOOD UREA NITROGEN 14.6 mg/dL (7-18)
[2022-07-01 09:46] LABS: CREATININE 0.9 mg/dL (0.55-1.3); PHOSPHOROUS 3.2 mg/dL (2.5-4.9)
[2022-07-01 09:47] LABS: BILIRUBIN,TOTAL 0.4 mg/dL (0.2-1); TOT PROT 6.6 g/dl (6.4-8.2)
[2022-07-01] MEDS ORDERED: INSULIN (NOVOLOG) ASPART 100 UNITS/ML 10ML VIAL ONE ×3 (16:52→21:41)
[2022-07-01] MEDS: ATORVASTATIN CA 10 MG TABLET (FP) PO SCH (21:50)
[2022-07-02 02:24] VITALS: PULSE 75
[2022-07-02] MEDS: INSULIN SLIDING SCALE (NOVOLOG) 1 VIAL SQ SCH ×2 (06:27→11:51)
[2022-07-02] MEDS ORDERED: INSULIN (LEVEMIR) 100 UNITS/ML UNITS SQ ONE (07:47)
[2022-07-02] MEDS: KETOROLAC TROMETHAMINE 0.5% EYE DROP 1 DROP DROPS OP SCH (09:26)
[2022-07-02] MEDS: CHLORTHALIDONE 25 MG TABLET PO SCH (09:26)
[2022-07-02] MEDS: METOPROLOL TARTRATE 25 MG TABLET (FP) PO SCH (09:26)
[2022-07-02] MEDS: ENOXAPARIN NA (PORCINE) 40 MG/0.4 ML DISP.SYRIN SQ SCH (09:28)
[2022-07-02] MEDS: CEFTRIAXONE 1 GM in DEXTROSE 5%-WATER - 50 ML IVPB SCH (09:29)
[2022-07-02] MEDS: INSULIN (LEVEMIR) 100 UNITS/ML UNITS SQ SCH (09:35)
[2022-07-02 09:51] VITALS: RESP 16; TEMP 97.9
[2022-07-02 13:40] VITALS: BP 152/88
== END 2022-07-02 16:22 | disposition home or self-care (01) | DRG 380 ==
LOC: JER 16:30 → JERBED 20:06 → J6S 06-30 02:34
PROVIDERS: ADMIT Internal Medicine; ATTEND Internal Medicine
DX: E11.621 Type 2 diabetes mellitus with foot ulcer (principal); L97.519 Non-pressure chronic ulcer of other part of right foot with unspecified severity; I10 Essential (primary) hypertension; E78.5 Hyperlipidemia, unspecified; E11.51 Type 2 diabetes mellitus with diabetic peripheral angiopathy without gangrene; L84 Corns and callosities; Z79.4 Long term (current) use of insulin
CPT/HCPCS: 0241U-QW; 36415; 73630-TC-RT-FY; 73719; 80053; 80061; 82962; 83036; 83605; 83735; 84100; 85025; 85651; 86140; 87040; 93005; 93010; 93926-TC; 99285-25; A9579

== ENCOUNTER 2023-07-08 20:33 | Emergency (ER) | payer OTHER ==
[2023-07-08 20:39] VITALS: BP 176/96; PULSE 82; RESP 20; TEMP 98.5; BMI 24.9
[2023-07-08 23:07] LABS: BASO % 0.4 % (0-2.0); EOS % 1.4 % (0-4.5); HEMATOCRIT 40.7 % (35.4-49); HEMOGLOBIN 13.3 GM/dL (11.7-16.9); LYMPH % 26.7 % (8-40); MCH 29.8 pg (25.7-33.7); MCHC 32.6 g/dl (32.0-35.9); MEAN CELL VOLUME 91.3 fl (80-96); MEAN PLT VOLUME 10.1 fl (7.5-11.1); NEUT % 62.5 % (42.8-82.8); PLATELET COUNT 166 10^3/uL (134-434); RBC 4.46 M/mm3 (4.00-5.60); RDW 14.7 % (11.9-15.9); WHITE BLOOD COUNT 6.4 K/mm3 (4.0-10.0)
[2023-07-09 00:08] LABS: ERYTHROCYTE SEDIMENTATION RATE 27 mm/hr (0-20)
== END 2023-07-09 00:03 | disposition left against medical advice (07) ==
LOC: JER 20:33
DX: E11.621 Type 2 diabetes mellitus with foot ulcer (principal); L97.519 Non-pressure chronic ulcer of other part of right foot with unspecified severity
CPT/HCPCS: 36415; 73630-TC-RT-FY; 85025; 85651; 86140; 99284-25

== ENCOUNTER 2024-08-25 10:08 | Inpatient (IN) | payer OTHER ==
[2024-08-25] MEDS ORDERED: ACETAMINOPHEN INJECTION 100 ML ONE (10:13)
[2024-08-25 10:28] LABS: VENOUS BASE EXCESS 2.6 mmol/L (-2-2); VENOUS O2 SATURATION 68.8 % (70-80); VENOUS PH 7.403 (7.310-7.410)
[2024-08-25 10:36] LABS: HEMATOCRIT 42.7 % (40.1-51.0); HEMOGLOBIN 14.3 g/dL (13.7-17.5); MCHC 33.5 g/dl (32.3-36.5); MEAN CELL VOLUME 88.2 fl (79.0-92.2); MEAN PLT VOLUME 11.4 fl (9.4-12.4); PLATELET COUNT 199 x10^3/uL (163-337); RDW 12.9 % (12.2-16.4)
[2024-08-25 10:39] LABS: INR 1.05 (0.83-1.09); PROTHROMBIN TIME (PATIENT) 11.6 SEC (9.7-13.0)
[2024-08-25 10:42] LABS: ACTIVATED PTT 30.8 SECONDS (25.2-36.5)
[2024-08-25 10:55] LABS: CHLORIDE 95 mmol/L (98-107); POTASSIUM 4.6 mmol/L (3.5-5.1); SODIUM 133 mmol/L (136-145)
[2024-08-25 10:58] LABS: CALCIUM 10.1 mg/dL (8.5-10.1)
[2024-08-25 10:59] LABS: ANION GAP 13 mmol/L (4-13); BLOOD UREA NITROGEN 33.2 mg/dL (7-18); CO2 25 mmol/L (21-32); GLUCOSE,RANDOM 465 mg/dL (74-106); MAGNESIUM 1.7 mg/dL (1.8-2.4)
[2024-08-25] MEDS: ACETAMINOPHEN 1000 MG/100 ML BAG IVPB ONE (11:00)
[2024-08-25] MEDS: SODIUM CHLORIDE 0.9% 500 ML INFUS.BAG IV ONE (11:00)
[2024-08-25 11:02] LABS: PHOSPHOROUS 3.3 mg/dL (2.5-4.9); SGOT/AST 34 U/L (15-37); SGPT/ALT 29 U/L (13-61)
[2024-08-25 11:03] LABS: BILIRUBIN,TOTAL 0.9 mg/dL (0.2-1)
[2024-08-25 11:05] LABS: ALK PHOS 203 U/L (45-117)
[2024-08-25 11:06] LABS: LACTIC ACID 3.6 mmol/L (0.4-2.0)
[2024-08-25 11:07] LABS: N-TERMINAL BNP 83.9 pg/ml (5-125)
[2024-08-25] MEDS: LACTATED RINGERS SOLUTION 1000 ML INFUS.BAG IV ONE (12:00)
[2024-08-25] MEDS ORDERED: VANCOMYCIN 1,000 MG in DEXTROSE 5%-WATER - 250 ML IVPB ONE (12:01)
[2024-08-25 12:12] LABS: PH,URINE 6.5 (5.0-8.0); URINE APPEARANCE CLEAR; URINE BILIRUBIN NEGATIVE (NEGATIVE); URINE COLOR YELLOW; URINE GLUCOSE (UA) 3+ (NEGATIVE); URINE KETONE NEGATIVE (NEGATIVE); URINE LEUK ESTERASE NEGATIVE (NEGATIVE); URINE NITRITE NEGATIVE (NEGATIVE); URINE PROTEIN 3+ (NEGATIVE)
[2024-08-25 12:15] LABS: EPI CELLS 10 /uL (0-25.1); HYALINE CASTS 0.12 /uL (0-3.1); URINE BACTERIA 82 /uL (0-1359); URINE RBC 14.9 /uL (0-23.9); URINE WBC 27.7 /uL (0-25.8)
[2024-08-25] MEDS ORDERED: PIPERACILLIN/TAZOB 4.5 GM 4.5 GM/100 ML BAG IVPB ONE ×2 (12:34→12:35)
[2024-08-25] MEDS: PIPERACILLIN/TAZOB 4.5 GM 4.5 GM in DEXTROSE 5%-WATER 100 ML IVPB ONE (13:00)
[2024-08-25] MEDS ORDERED: MAGNESIUM SULF 50% (8.12 MEQ/2 ML-1 GM VIAL) IVPB ONE (14:17)
[2024-08-25] MEDS ORDERED: PIPERACILLIN/TAZOB 3.375 GM 3.375 GM in DEXTROSE 5%-WATER - 50 ML IVPB SCH (14:30)
[2024-08-25] MEDS ORDERED: VANCOMYCIN 1 GM PREMIX (F) 1 GM/200 ML BAG ONE (14:50)
[2024-08-25] MEDS ORDERED: INSULIN GLARGINE (LANTUS) 100 UNITS/ML UNITS SQ ONE (14:52)
[2024-08-25] MEDS: INSULIN GLARGINE (LANTUS) 100 UNITS/ML UNITS SQ ONE (15:00)
[2024-08-25] MEDS: INSULIN (NOVOLOG) ASPART 100 UNITS/ML 10ML VIAL SQ ONE ×2 (15:00→16:45)
[2024-08-25] MEDS ORDERED: CEFEPIME 1 GM in DEXTROSE 5%-WATER 100 ML IVPB SCH ×2 (15:00→22:00)
[2024-08-25] MEDS: LACTATED RINGERS SOLUTION 1,000 ML/1,000 ML INFUS.BAG IV SCH (15:00)
[2024-08-25] MEDS: VANCOMYCIN 1 GM PREMIX (F) 1 GM/200 ML BAG IVPB ONE (15:00)
[2024-08-25] MEDS ORDERED: HEPARIN NA (PORCINE) 5,000 UNITS/ML 1ML VIAL ONE (15:45)
[2024-08-25 15:54] LABS: LACTIC ACID 3.9 mmol/L (0.4-2.0)
[2024-08-25 17:01] VITALS: BMI 24.9
[2024-08-25] MEDS: HEPARIN NA (PORCINE) 5,000 UNITS/ML 1ML VIAL SQ SCH (17:13)
[2024-08-25] MEDS: INSULIN ASPART SLIDING SCALE (NOVOLOG) 1 VIAL SQ SCH (17:17)
[2024-08-25] MEDS: INSULIN (NOVOLOG) ASPART 100 UNITS/ML 10ML VIAL SQ SCH (17:18)
[2024-08-25] MEDS: CEFEPIME HCL/D5W 1 GM/50 ML BAG IVPB SCH (17:57)
[2024-08-25] MEDS: MAGNESIUM 2GM/50ML STERILE WATER IVPB IVPB ONE (18:35)
[2024-08-25] MEDS ORDERED: FAMOTIDINE 40 MG TABLET PO PRN (18:48)
[2024-08-25] MEDS: METOPROLOL TARTRATE 25 MG TABLET (FP) PO SCH (21:35)
[2024-08-25] MEDS: ATORVASTATIN CA 10 MG TABLET (FP) PO SCH (21:35)
[2024-08-25] MEDS ORDERED: INSULIN GLARGINE (LANTUS) 100 UNITS/ML UNITS SQ SCH ×2 (22:00)
[2024-08-25] MEDS ORDERED: CEFEPIME HCL 1 GM VIAL (RESTRICTED TO ID) IVPB SCH (22:00)
[2024-08-25 22:25] LABS: LACTIC ACID 2.5 mmol/L (0.4-2.0)
[2024-08-26 08:30] LABS: ABSOLUTE IMMATURE GRANULOCYTES 0.03 x10^3/uL (0.0-0.031); BASOPHILS # 0.04 x10^3/uL (0.01-0.08); EOSINOPHIL % 0.7 % (0.8-7.0); EOSINOPHILS # 0.05 x10^3/uL (0.04-0.54); HEMOGLOBIN 11.7 g/dL (13.7-17.5); MCHC 32.5 g/dl (32.3-36.5); MEAN CELL VOLUME 89.3 fl (79.0-92.2); MEAN PLT VOLUME 11.8 fl (9.4-12.4); MONOCYTE # 0.57 x10^3/uL (0.30-0.82); MONOCYTE % 7.9 % (5.3-12.2); PLATELET COUNT 183 x10^3/uL (163-337); RDW 13.3 % (12.2-16.4)
[2024-08-26 08:50] LABS: POTASSIUM 3.6 mmol/L (3.5-5.1)
[2024-08-26 08:57] LABS: ALBUMIN 2.5 g/dl (3.4-5.0); BLOOD UREA NITROGEN 24.1 mg/dL (7-18); PHOSPHOROUS 3.1 mg/dL (2.5-4.9)
[2024-08-26 08:59] LABS: TOT PROT 5.7 g/dl (6.4-8.2)
[2024-08-26 09:01] LABS: BILIRUBIN,TOTAL 0.6 mg/dL (0.2-1); CREATININE 1.4 mg/dL (0.55-1.3); MAGNESIUM 2.1 mg/dL (1.8-2.4)
[2024-08-26] MEDS: CLINDAMYCIN 900 MG PREMIX IVPB 900 MG/50 ML BAG IVPB SCH (09:07)
[2024-08-26] MEDS: TAMSULOSIN HCL 0.4 MG CAP PO SCH (09:08)
[2024-08-26] MEDS: amLODIPine BESYLATE 10 MG TABLET (FP) PO SCH (09:08)
[2024-08-26] MEDS: PIPERACILLIN/TAZOB 4.5 GM 4.5 GM/100 ML BAG IVPB SCH (09:16)
[2024-08-26] MEDS: INSULIN GLARGINE (LANTUS) 100 UNITS/ML UNITS SQ SCH (11:21)
[2024-08-26] MEDS ORDERED: VANCOMYCIN 1 GM PREMIX (F) 1 GM/200 ML BAG IVPB SCH ×2 (12:00→15:00)
[2024-08-26] MEDS: VANCOMYCIN 1 GM PREMIX (F) 1 GM/200 ML BAG IVPB SCH (14:58)
[2024-08-27] MEDS: VANCOMYCIN/WATER FOR INJ (PEG) 1 GM/200 ML BAG IVPB SCH (02:46)
[2024-08-27 09:33] LABS: ABSOLUTE IMMATURE GRANULOCYTES 0.02 x10^3/uL (0.0-0.031); BASOPHILS # 0.04 x10^3/uL (0.01-0.08); EOSINOPHIL % 3.7 % (0.8-7.0); EOSINOPHILS # 0.16 x10^3/uL (0.04-0.54); HEMATOCRIT 39.2 % (40.1-51.0); HEMOGLOBIN 12.6 g/dL (13.7-17.5); MCHC 32.1 g/dl (32.3-36.5); MEAN CELL VOLUME 89.7 fl (79.0-92.2); MEAN PLT VOLUME 11.9 fl (9.4-12.4); MONOCYTE # 0.56 x10^3/uL (0.30-0.82); PLATELET COUNT 172 x10^3/uL (163-337); RDW 13.2 % (12.2-16.4)
[2024-08-27 10:29] LABS: ALBUMIN 2.7 g/dl (3.4-5.0); CALCIUM 9.2 mg/dL (8.5-10.1)
[2024-08-27 10:31] LABS: BLOOD UREA NITROGEN 20.3 mg/dL (7-18)
[2024-08-27 10:32] LABS: CREATININE 1.5 mg/dL (0.55-1.3)
[2024-08-27 10:34] LABS: BILIRUBIN,TOTAL 0.7 mg/dL (0.2-1)
[2024-08-27 10:39] LABS: TOT PROT 6.5 g/dl (6.4-8.2)
[2024-08-27] MEDS: COLLAGENASE CLOSTRIDIUM HIST. 30 GRAMS TUBE TP SCH (17:08)
[2024-08-28 08:34] LABS: ABSOLUTE IMMATURE GRANULOCYTES 0.06 x10^3/uL (0.0-0.031); HEMATOCRIT 36.7 % (40.1-51.0); HEMOGLOBIN 11.9 g/dL (13.7-17.5); MCHC 32.4 g/dl (32.3-36.5); MEAN CELL VOLUME 89.7 fl (79.0-92.2); RDW 13.2 % (12.2-16.4)
[2024-08-28 08:36] LABS: BASOPHILS # 0.04 x10^3/uL (0.01-0.08); EOSINOPHIL % 3.2 % (0.8-7.0); EOSINOPHILS # 0.15 x10^3/uL (0.04-0.54); MEAN PLT VOLUME 11.2 fl (9.4-12.4); MONOCYTE # 0.54 x10^3/uL (0.30-0.82); MONOCYTE % 11.6 % (5.3-12.2); PLATELET COUNT 176 x10^3/uL (163-337)
[2024-08-28 08:46] LABS: POTASSIUM 3.8 mmol/L (3.5-5.1)
[2024-08-28 09:01] LABS: ALBUMIN 2.5 g/dl (3.4-5.0); MAGNESIUM 1.9 mg/dL (1.8-2.4)
[2024-08-28 09:02] LABS: BLOOD UREA NITROGEN 15.2 mg/dL (7-18)
[2024-08-28 09:04] LABS: CREATININE 1.4 mg/dL (0.55-1.3)
[2024-08-28 09:05] LABS: BILIRUBIN,TOTAL 0.5 mg/dL (0.2-1)
[2024-08-28 09:06] LABS: TOT PROT 5.8 g/dl (6.4-8.2)
[2024-08-28] MEDS: POLYETHYLENE GLYCOL (HEALTHYLAX) 3350 17 GM PACKET PO SCH (13:35)
[2024-08-28] MEDS: DOCUSATE SODIUM 100 MG CAPSULE (FP) PO SCH (21:34)
[2024-08-29 08:18] LABS: BASOPHILS # 0.05 x10^3/uL (0.01-0.08); HEMOGLOBIN 11.9 g/dL (13.7-17.5); RDW 13.4 % (12.2-16.4)
[2024-08-29 08:19] LABS: EOSINOPHILS # 0.17 x10^3/uL (0.04-0.54); HEMATOCRIT 37.1 % (40.1-51.0); MCHC 32.1 g/dl (32.3-36.5); MEAN PLT VOLUME 11.3 fl (9.4-12.4); MONOCYTE # 0.63 x10^3/uL (0.30-0.82); MONOCYTE % 11.2 % (5.3-12.2); PLATELET COUNT 199 x10^3/uL (163-337)
[2024-08-29 08:33] LABS: POTASSIUM 4.2 mmol/L (3.5-5.1)
[2024-08-29 08:44] LABS: CALCIUM 9.2 mg/dL (8.5-10.1)
[2024-08-29 08:45] LABS: ALBUMIN 2.7 g/dl (3.4-5.0); BLOOD UREA NITROGEN 16.7 mg/dL (7-18); MAGNESIUM 2.1 mg/dL (1.8-2.4)
[2024-08-29 08:48] LABS: BILIRUBIN,TOTAL 0.7 mg/dL (0.2-1); CREATININE 1.5 mg/dL (0.55-1.3)
[2024-08-29 08:49] LABS: TOT PROT 6.1 g/dl (6.4-8.2)
[2024-08-29] MEDS ORDERED: INSULIN ASPART SLIDING SCALE (NOVOLOG) 1 VIAL SQ ONE (13:39)
[2024-08-29] MEDS: INSULIN (NOVOLOG) ASPART 100 UNITS/ML 10ML VIAL SQ SCH (13:43)
[2024-08-30 08:59] LABS: HEMOGLOBIN 11.9 g/dL (13.7-17.5)
[2024-08-30 09:00] LABS: ABSOLUTE IMMATURE GRANULOCYTES 0.11 x10^3/uL (0.0-0.031); BASOPHILS # 0.04 x10^3/uL (0.01-0.08); EOSINOPHIL % 3.3 % (0.8-7.0); EOSINOPHILS # 0.19 x10^3/uL (0.04-0.54); HEMATOCRIT 36.8 % (40.1-51.0); MCHC 32.3 g/dl (32.3-36.5); MEAN CELL VOLUME 89.8 fl (79.0-92.2); MEAN PLT VOLUME 10.8 fl (9.4-12.4); MONOCYTE # 0.62 x10^3/uL (0.30-0.82); MONOCYTE % 10.8 % (5.3-12.2); PLATELET COUNT 215 x10^3/uL (163-337); RDW 13.5 % (12.2-16.4)
[2024-08-30 09:24] LABS: POTASSIUM 3.9 mmol/L (3.5-5.1)
[2024-08-30 10:19] LABS: ALBUMIN 2.7 g/dl (3.4-5.0); BLOOD UREA NITROGEN 12.4 mg/dL (7-18); CALCIUM 8.9 mg/dL (8.5-10.1)
[2024-08-30] MEDS: INSULIN GLARGINE (LANTUS) 100 UNITS/ML UNITS SQ SCH (10:19)
[2024-08-30 10:21] LABS: MAGNESIUM 2.1 mg/dL (1.8-2.4)
[2024-08-30 10:22] LABS: BILIRUBIN,TOTAL 0.6 mg/dL (0.2-1); CREATININE 1.3 mg/dL (0.55-1.3)
[2024-08-30 10:23] LABS: TOT PROT 6.2 g/dl (6.4-8.2)
[2024-08-30] MEDS: ERTAPENEM SODIUM 1 GM in SODIUM CHLORIDE 50 ML IVPB ONE (15:47)
[2024-08-30] MEDS ORDERED: INSULIN ASPART SLIDING SCALE (NOVOLOG) 1 VIAL SQ ONE (21:04)
[2024-08-30 21:46] VITALS: RESP 17
[2024-08-31] MEDS ORDERED: INSULIN ASPART SLIDING SCALE (NOVOLOG) 1 VIAL SQ ONE (05:04)
[2024-08-31 06:54] VITALS: BP 138/83; PULSE 63; TEMP 97.9
[2024-08-31 08:35] LABS: ABSOLUTE IMMATURE GRANULOCYTES 0.11 x10^3/uL (0.0-0.031); BASOPHILS # 0.04 x10^3/uL (0.01-0.08); EOSINOPHIL % 2.3 % (0.8-7.0); EOSINOPHILS # 0.15 x10^3/uL (0.04-0.54); HEMATOCRIT 37.7 % (40.1-51.0); HEMOGLOBIN 12.2 g/dL (13.7-17.5); MCHC 32.4 g/dl (32.3-36.5); MEAN CELL VOLUME 90.2 fl (79.0-92.2); MEAN PLT VOLUME 10.8 fl (9.4-12.4); MONOCYTE # 0.65 x10^3/uL (0.30-0.82); MONOCYTE % 9.9 % (5.3-12.2); PLATELET COUNT 230 x10^3/uL (163-337); RDW 13.9 % (12.2-16.4)
[2024-08-31 08:58] LABS: POTASSIUM 3.9 mmol/L (3.5-5.1)
[2024-08-31 09:04] LABS: CALCIUM 8.7 mg/dL (8.5-10.1)
[2024-08-31 09:05] LABS: ALBUMIN 2.6 g/dl (3.4-5.0); BLOOD UREA NITROGEN 11.8 mg/dL (7-18); MAGNESIUM 1.9 mg/dL (1.8-2.4)
[2024-08-31 09:10] LABS: TOT PROT 6.1 g/dl (6.4-8.2)
[2024-08-31 09:12] LABS: BILIRUBIN,TOTAL 0.4 mg/dL (0.2-1)
[2024-08-31] MEDS: ERTAPENEM SODIUM 1 GM in SODIUM CHLORIDE 50 ML IVPB SCH (10:13)
[2024-08-31] MEDS: INSULIN GLARGINE (LANTUS) 100 UNITS/ML UNITS SQ SCH (10:14)
== END 2024-08-31 11:40 | disposition home health service (06) | DRG 603 ==
LOC: JER 10:08 → JERBED 13:17 → J8W 16:02 → OBSVTOIN 08-29 10:08
PROVIDERS: ADMIT Internal Medicine; ATTEND Nurse Practitioner Family
PROC: 02HV33Z Insertion of Infusion Device into Superior Vena Cava, Percutaneous Approach (ICD-10-PCS; principal; 2024-08-30)
PROC: B548ZZA Ultrasonography of Superior Vena Cava, Guidance (ICD-10-PCS; 2024-08-30)
DX: L03.116 Cellulitis of left lower limb (principal); N17.9 Acute kidney failure, unspecified; E87.20 Acidosis, unspecified; E11.621 Type 2 diabetes mellitus with foot ulcer; L97.529 Non-pressure chronic ulcer of other part of left foot with unspecified severity; E11.65 Type 2 diabetes mellitus with hyperglycemia; E83.42 Hypomagnesemia; K21.9 Gastro-esophageal reflux disease without esophagitis; E11.42 Type 2 diabetes mellitus with diabetic polyneuropathy; I12.9 Hypertensive chronic kidney disease with stage 1 through stage 4 chronic kidney disease, or unspecified chronic kidney disease; N18.9 Chronic kidney disease, unspecified; E78.5 Hyperlipidemia, unspecified; E11.51 Type 2 diabetes mellitus with diabetic peripheral angiopathy without gangrene
CPT/HCPCS: 0241U-QW; 36415; 36569; 70450-TC; 70496-TC; 70498-TC; 71045-TC-FY; 73630-TC-LT; 73718-TC-LT; 76775-TC; 80053; 80061; 81003; 82010; 82550; 82553; 82607; 82803; 82962; 83036; 83605; 83690; 83735; 83880; 83930; 84100; 84436; 84443; 84484; 85025; 85610; 85651; 85730; 86140; 86850; 86900; 86901; 87040; 87070; 87077; 87086; 87186; 87205; 93005; 93010; 93925-TC; 99291; G0378; G0480